=== PATIENT | female | born 1970 | race Caucasian/White ===

== ENCOUNTER 2017-08-23 13:45 | Emergency (ER) | payer BC, SELFPAY ==
[2017-08-23 13:46] VITALS: BP 125/79; PULSE 68; RESP 18; TEMP 36.4; O2SAT 97; BMI 29.7
--- NOTE | 2017-08-23 14:01 | RAD_ITS ---
STUDY: X-RAY CHEST REASON FOR EXAM: Female, 47 years old. Chest pain. TECHNIQUE: Single AP portable view of the chest. COMPARISON: None. FINDINGS: The lungs are clear and expanded. There is no demonstrated pleural abnormality. Normal size heart. There are calcified mediastinal lymph nodes. Normal visualized pulmonary arteries. Normal visualized aortic arch and descending thoracic aorta. Normal visualized thoracic spine. Normal visualized ribs, clavicles, and shoulders. There is no demonstrated abnormality of the visualized soft tissue structures of the upper abdomen. RAD/Chest 1 View (Portable) IMPRESSION: Degenerative changes, as described above. No demonstrated acute cardiopulmonary process. Electronically Signed: Carlos Fletcher MD at 14:19 EDT , Service support ,
--- NOTE | 2017-08-23 14:01 | CT_ITS ---
STUDY: CT BRAIN WITHOUT CONTRAST REASON FOR EXAM: Female, 47 years old. Weakness. Left arm tingling. RADIATION DOSAGE (If Supplied By Facility): CTDIvol = ( 44.99 ) mGy, DLP = ( 779.24 ) mGycm TECHNIQUE: Transaxial CT imaging of the brain was performed without administration of intravenous contrast material. Individualized dose optimization techniques were used for this CT. COMPARISON: None. FINDINGS: Normal soft tissue structures. Normal calvarium. Normal size ventricles and extra-axial spaces for the patient's age. Normal white matter tracts of the cerebral hemispheres. Normal basal ganglia and thalami. Normal brainstem. Normal cerebellum. There is no intracranial hemorrhage. There are no findings of an acute ischemic infarction. There is mucoperiosteal inflammatory disease of the paranasal sinuses consistent with mild to moderate chronic sinusitis. CT/Brain/Head without Contrast IMPRESSION: Normal unenhanced CT scan of the brain. Sinusitis. Electronically Signed: Carlos Fletcher MD at 15:00 EDT , Service support ,
--- NOTE | 2017-08-23 14:01 | EKG12_ITS ---
Test Reason : GEN ILLNESS Blood Pressure : / mmHG Vent. Rate : 061 BPM Atrial Rate : 061 BPM P-R Int : 166 ms QRS Dur : 082 ms QT Int : 434 ms P-R-T Axes : 037 -07 002 degrees QTc Int : 436 ms Normal sinus rhythm Nonspecific ST and T wave abnormality Confirmed by ALESHIA MICHELE, JCARLOS ([id number]), assistant film editor ALINA FLOREZ ([id number] on 08/27/2017 2:19:25 PM Referred By: CLAYTON Confirmed By:JCARLOS MONK MD
--- NOTE | 2017-08-23 14:02 | ED.VISSUMM ---
- ER Visit Summary Date of Service: 08/23/17 Chief Complaint: [] Left arm tingling, facial numbness History of Present Illness: The patient is a 47 F [] worse last night she had a few beers she woke and had a vomiting episode a few times and she felt better and back to her baseline she was weed whacking with a weed whacking machine and she felt her left hand and left face seemed numb and tingly slightly weak to the left upper extremity she sat down the symptoms persisted and she was brought in for evaluation She is feeling slightly better but still feels as if her left arm is numb her facial numbness symptoms have resolved at no time did she have confusion syncope she has had no trauma she has had no symptoms involving anything other than the left upper extremity and left face, she has no history of stroke seizure AK PE or DVT she has had no chest pain or abdominal pain normal bowel bladder habits no fever no cough Physical Examination: [] Signs are within normal range she is resting cupping the bed her HEENT exam is unremarkable cranial nerves are normal her neck is supple lungs are clear heart tones are normal abdomen soft nontender production was unremarkable she has normal sensation and full range of motion to all 4 extremities her strength all 4 extremities are normal 5 out of 5 there is no weakness to any of the extremities left upper extremity strength intact there is normal sensation pulses intact hand function fully normal, mental status visual brewer are normal Test Results: [] Emergency Department Course and Treatment: [] The labs EKG unremarkable, head CT unremarkable, reevaluation the patient's symptoms are resolved she was accompanied to bed I discussed admission with her given her complaints discussed the concept of stroke occult injury life-threatening complications was in the room with her, she is able to read back to me my concerns but stated she felt fine now she understood the concerns and want to be managed as an outpatient and agree to return for symptoms change or intensified and will follow up with neurology by calling for an appointment as soon as possible for further she will take aspirin until she seen by neurology, based on all the above she was discharged home follow-up reEvaluation the patient's NIH is still 0 her physical exam neurologic exam are completely unremarkable back to her baseline Treatment Plan: [] Disposition: [] Home stable patient declined admission Impression: [] Transient numbness and weakness the left arm etiology unclear This note was generated with [employer] software. It may contain incorrect words, spelling, and punctuation that were not noted in review of the chart prior to signing ED Disposition - Plan for ED Patient: Chief Complaint: General Illness Referrals: Xavi Beal MD [Primary Care Provider] -
[2017-08-23] MEDS: 0.9% Normal Saline 1,000 ML 1000 ML IV (14:18)
[2017-08-23 14:22] VITALS: PULSE 61; RESP 14; O2SAT 98
[2017-08-23 14:29] LABS: Absolute Lymphocyte Count 0.76 X10^3/ul (0.83-4.51); Absolute Neutrophil Count 3.1 X10^3/uL (2.0-7.7); Basophil# 0.01 X10^3/uL; Basophil% 0.2 % (0-1); Eosinophil# 0.06 X10^3/uL; Eosinophils% 1.4 % (0-5); Hematocrit 39.9 % (37-47); Hemoglobin 13.2 g/dl (12.0-15.0); Lymphocyte # 0.76 X10^3/ul (4.0); Lymphocyte % 17.9 % (19-41); Mean Corp Hgb Conc 33.1 g/gl (32-36); Mean Corpuscular Hgb 29.1 pg (27.0-32.0); Mean Corpuscular Volume 87.9 fL (81-99); Mean Platelet Vol. 10.2 fl (6.2-12.0); Monocyte# 0.29 X10^3/uL; Monocyte% 6.8 % (0-10); Neutrophil # 3.12 X10^3/uL (2.7-7.7); Neutrophil % 73.5 % (47-70); POSITIVE COUNT NO; POSITIVE DIFFERENTIAL NO; POSITIVE MORPHOLOGY NO; Platelet Count 263 K/mm3 (150-450); RBC Distribution Width CV 13.5 % (11.6-14.6); RBC Distribution Width SD 43.3 fl (35.1-43.9); Red Blood Count 4.54 M/mm3 (4.2-5.4); White Blood Count 4.3 K/mm3 (4.4-11.0)
[2017-08-23 14:45] LABS: AST(SGOT) 20 U/L (15-37); Alanine Aminotransfer ALT/SGPT 20 U/L (13-56); Albumin, Serum 3.5 g/dL (3.2-5.0); Alkaline Phosphatase 47 U/L (45-117); Anion Gap 7 (5-15); BUN 10 mg/dL (7-18); Bilirubin, Direct 0.16 mg/dL (0.00-0.30); Calcium,Total 8.4 mg/dL (8.5-10.1); Chloride 111 mmol/L (98-107); Creatinine, Serum 0.77 mg/dL (0.55-1.02); EST Glomerular Filtration Rate 86 mL/min (>60); Est Glom Filt Rate - Afr Amer 104 mL/min (>60); Estimated Creatinine Clearance 95.41 ml/min; Globulin 3.5 g/dL (2.2-4.2); Glucose 89 mg/dL (74-106); Lipase 96 U/L (73-393); Potassium 3.6 mmol/L (3.5-5.1); Sodium Level 141 mmol/L (136-145)
[2017-08-23 15:01] LABS: BNP,B-Type NATRIURETIC PEPTIDE 58.2 pg/mL (0-100)
--- NOTE | 2017-08-23 15:29 | ED.DEP ---
ED Disposition - Plan for ED Patient: Chief Complaint: General Illness Instructions: ED Transient Ischemic Attack Referrals: Xavi Beal MD [Primary Care Provider] - Stew Rhoades MD [STAFF PHYSICIAN] -
[2017-08-23 15:40] VITALS: BP 118/85; PULSE 59; RESP 13; O2SAT 100
[2017-08-23] MEDS: Aspirin 325 MG Tablet PO (15:40)
--- NOTE | 2017-08-23 15:44 | ED.RN ---
REVIEWED D/C INSTRUCTIONS, FOLLOW UP CARE, AND S/S THAT WOULD WARRANT A RETURN TO THE ED WITH PT. PT VERBALIZED AN UNDERSTANDING AND DENIES FURTHER QUESTIONS FOR THIS RN. PT SKIN P/W/D, RESP EVEN AND UNLABORED, PT A&O X 3, NO DISTRESS NOTED. PT AMBULATED OUT OF ED, GAIT STEADY.
== END 2017-08-23 15:46 | disposition home or self-care (01) ==
PROVIDERS: Emergency Provider Emergency Medicine; Family Provider Family Medicine; PCP Family Medicine
DX: R20.0 Anesthesia of skin (principal); M62.81 Muscle weakness (generalized)
CPT/HCPCS: 70450; 71045; 80048; 80076; 83690; 83880; 84484; 85025; 93005; 96360; 99285; J7030; A4216

== ENCOUNTER → 2018-01-23 07:17 | Outpatient (CLI) | payer BC, SELFPAY ==
[2018-01-23 10:34] LABS: Absolute Lymphocyte Count 1.07 X10^3/ul (0.83-4.51); Absolute Neutrophil Count 1.6 X10^3/uL (2.0-7.7); Basophil# 0.02 X10^3/uL; Basophil% 0.6 % (0-1); Eosinophil# 0.46 X10^3/uL; Eosinophils% 13.2 % (0-5); Hematocrit 37.5 % (37-47); Hemoglobin 12.2 g/dl (12.0-15.0); Lymphocyte # 1.07 X10^3/ul (4.0); Lymphocyte % 30.7 % (19-41); Mean Corp Hgb Conc 32.5 g/gl (32-36); Mean Corpuscular Hgb 29.3 pg (27.0-32.0); Mean Corpuscular Volume 89.9 fL (81-99); Mean Platelet Vol. 11.4 fl (6.2-12.0); Monocyte# 0.32 X10^3/uL; Monocyte% 9.2 % (0-10); Neutrophil # 1.61 X10^3/uL (2.7-7.7); Neutrophil % 46.3 % (47-70); Platelet Count 238 K/mm3 (150-450); RBC Distribution Width CV 12.6 % (11.6-14.6); RBC Distribution Width SD 40.7 fl (35.1-43.9); Red Blood Count 4.17 M/mm3 (4.2-5.4); White Blood Count 3.5 K/mm3 (4.4-11.0)
[2018-01-23 10:36] LABS: POSITIVE COUNT NO; POSITIVE DIFFERENTIAL NO; POSITIVE MORPHOLOGY NO
[2018-01-23 10:52] LABS: AST(SGOT) 17 U/L (15-37); Alanine Aminotransfer ALT/SGPT 23 U/L (13-56); Albumin, Serum 3.4 g/dL (3.2-5.0); Alkaline Phosphatase 49 U/L (45-117); Anion Gap 6 (5-15); BUN 15 mg/dL (7-18); BUN/Creat Ratio 17.4 RATIO (10-20); Calcium,Total 8.4 mg/dL (8.5-10.1); Chloride 109 mmol/L (98-107); Cholesterol 190 mg/dL (200); Creatinine, Serum 0.86 mg/dL (0.55-1.02); EST Glomerular Filtration Rate 75 mL/min (>60); Est Glom Filt Rate - Afr Amer 91 mL/min (>60); Globulin 3.5 g/dL (2.2-4.2); Glucose 83 mg/dL (74-106); High Density Lipoprotein 79 mg/dL; Potassium 3.8 mmol/L (3.5-5.1); Protein, Total 6.9 g/dL (6.4-8.2); Sodium Level 142 mmol/L (136-145); Thyroid Stim Hormone (TSH) 0.19 uIU/mL (0.358-3.74); Triglycerides 36 mg/dL; Very Low Density Lipoprotein 7 mg/dL (5-40)
== END ==
PROVIDERS: Family Provider Family Medicine; PCP Family Medicine; Referring Provider Family Medicine; Visit Provider Family Medicine
DX: Z00.00 Encounter for general adult medical examination without abnormal findings (principal); E03.9 Hypothyroidism, unspecified
CPT/HCPCS: 36415; 80053; 80061; 84443; 85025

== ENCOUNTER → 2018-02-27 08:34 | Outpatient (CLI) | payer BC, SELFPAY ==
--- NOTE | 2018-02-27 08:36 | BI_ITS ---
MAMMOGRAPHY - BILATERAL SCREENING REASON FOR EXAM: Female, 47 years old. Routine annual screening examination. PERTINENT HISTORY: Non-contributory. TECHNIQUE: Digital bilateral breast kamille (3D mammographic acquisition) in the CC and MLO projections. 2-D mediolateral oblique (MLO) and craniocaudad (CC) views of both breasts were obtained. CAD: Full Field Digital Mammography with Computer Added Detection was performed. COMPARISON: None. Baseline examination. FINDINGS: Breast Composition: The breasts are heterogeneously dense, which may obscure small masses. There are no dominant masses or suspicious calcifications. No other significant abnormalities are identified. BI/SCREENING MAMM (CAD), BILAT IMPRESSION: Negative screening mammogram. Yearly followup mammogram recommended. (A) ASSESSMENT CATEGORY: BIRADS Category 1: Negative. A letter regarding these results will be sent to the patient by the facility within 30 days. Approximately 10% of breast cancers are not detected by mammography. A normal mammogram should not delay biopsy of a clinically suspicious abnormality. [id number] Electronically Signed: Tacho Loja MD at 10:05 EST Tel [phone], Service support ,
--- OUTSIDE RECORDS SUMMARY | 2018-04-24 03:19 | XMS RPT_ITS ---
:1970 Author Organization OHIP Care Team Providers Name Role Phone Xavi Beal Attending Unavailable Xavi Beal Referring Unavailable Xavi Beal Primary Care Unavailable Xavi Beal Attending Unavailable Xavi Beal Referring Unavailable Xavi Beal Primary Care Unavailable Xavi Beal Primary Care Unavailable Lauri Head Attending Unavailable Xavi Beal Attending Unavailable PROBLEMS PROBLEMS DATE TYPE CONDITION / CODE ATTENDING STATUS SOURCE 01/23/2018 Unknown Z00.00 - Xavi Beal Encounter for [facility] medical Repository examination without abnormal findings / Z00.00(ICD-10) 01/23/2018 Unknown E03.9 - Xavi Beal Active [place] Hypothyroidism, Community unspecified / Hospital E03.9(ICD-10) Repository 06/20/2017 Admitting Unknown / Xavi Beal [facility] Medical diagnosis UNK(Unknown) G [facility] Repository PROCEDURES PROCEDURES No Procedure Records FoundRESULTS RESULTS SCREENING MAMM (CAD), Observed: 02/27/2018 Status: F Source: [place] 8:36 AM [facility] REPOSITORY [facility] Imaging Services [address] [place] [address] SCREENING MAMM (CAD), BILAT MR#: [id number] Acct: [id number] Name: MICK CUEVAS Rep #: [id number] : 1970 F 47 From: Tacho Loja MD PCP: Xavi Beal MD Status: REG CLI Study: SCREENING MAMM (CAD), BILAT Date of Exam: 02/27/18 Exam# [id number] Ordering Dr: Xavi Beal MD MAMMOGRAPHY - BILATERAL SCREENING REASON FOR EXAM: Female, 47 years old. Routine annual screening examination. PERTINENT HISTORY: Non-contributory. TECHNIQUE: Digital bilateral breast kamille (3D mammographic acquisition) in the CC and MLO projections. 2-D mediolateral oblique (MLO) and craniocaudad (CC) views of both breasts were obtained. CAD: Full Field Digital Mammography with Computer Added Detection was performed. COMPARISON: None. Baseline examination. FINDINGS: Breast Composition: The breasts are heterogeneously dense, which may obscure small masses. There are no dominant masses or suspicious calcifications. No other significant abnormalities are identified. BI/SCREENING MAMM (CAD), BILAT IMPRESSION: Negative screening mammogram. Yearly followup mammogram recommended. (A) ASSESSMENT CATEGORY: BIRADS Category 1: Negative. A letter regarding these results will be sent to the patient by the facility within 30 days. Approximately 10% of breast cancers are not detected by mammography. A normal mammogram should not delay biopsy of a clinically suspicious abnormality. [id number] Electronically Signed: Tacho Loja MD at 10:05 EST Tel [phone], Service support , CC: Xavi Beal MD Marketing Traffic Coordinator: Signed CBC W/DIFF, AUTOMATED Collected: 01/23/2018 Status: F Source: [place] 7:23 AM [facility] REPOSITORY TYPE CODE TESTS RESULT OUT OF RANGE REFERENCE UNITS LAB L100.1000 4.4-11.0 K/mm3 Low WBC 3.5 LAB L100.1200 4.2-5.4 M/mm3 Low RBC 4.17 LAB L100.1300 12.0-15.0 g/dl Normal HGB 12.2 LAB L100.1400 37-47 % Normal HCT 37.5 LAB L100.1500 81-99 fL Normal MCV 89.9 LAB L100.1600 27.0-32.0 pg Normal MCH 29.3 LAB L100.1700 32-36 g/gl Normal MCHC 32.5 LAB L100.1810 11.6-14.6 % Normal RDW CV 12.6 LAB L100.1820 35.1-43.9 fl Normal RDW SD 40.7 LAB L100.1900 150-450 K/mm3 Normal PLT 238 LAB L100.2000 6.2-12.0 fl Normal MPV 11.4 LAB L100.2100 47-70 % Low NEUT% 46.3 LAB L100.2200 19-41 % Normal LY% 30.7 LAB L100.2300 0-10 % Normal MONO% 9.2 LAB L100.2400 0-5 % High EO% 13.2 LAB L100.2500 0-1 % Normal BASO% 0.6 LAB L100.2550 0.0-0.9 % Normal IM GRAN % 0.000 Result Comment: IG% - Immature Granulocytes (promyelocytes, myelocytes and metamyelocytes) > 1% indicates that a LEFT SHIFT is Present. LAB L100.2620 2.0-7.7 X10 3/uL Low Absolute Neut 1.6 LAB L100.2720 0.83-4.51 X10 3/ul Normal Absolute Lymph 1.07 Performed By: #### L100.0100 #### [facility] [address] [place], [address] COMPREHENSIVE METABOLIC Collected: 01/23/2018 Status: F Source: [place] [facility] 7:23 AM [facility] REPOSITORY TYPE CODE TESTS RESULT OUT OF RANGE REFERENCE UNITS LAB L501.0100 74-106 mg/dL Normal GLU 83 Result Comment: Please note revised GLUCOSE reference range effective 2017. LAB L501.1000 7-18 mg/dL Normal BUN 15 LAB L501.1100 0.55-1.02 mg/dL Normal CREAT,SERUM 0.86 Result Comment: The validity of the calculated GFR AND GFRAA in patients over 70 years has not been determined. Clinical correlation is essential. LAB L501.1110 >60 mL/min Normal EST GFR 75 Result Comment: Non- GFR Calc LAB L501.1115 >60 mL/min Normal EST GFR - AA 91 Result Comment: GFR Calc LAB L501.1300 10-20 RATIO Normal BUN/CRE 17.4 LAB L501.1500 6.4-8.2 g/dL T Normal PROT 6.9 LAB L501.1800 3.2-5.0 g/dL Normal ALB 3.4 LAB L501.1950 2.2-4.2 g/dL Normal GLOB 3.5 LAB L501.2000 0.9-2.4 RATIO Normal A/G 1.0 LAB L501.2200 8.5-10.1 mg/dL Low CA 8.4 LAB L501.4100 15-37 U/L Normal AST 17 LAB L501.4305 45-117 U/L Normal ALK P 49 LAB L501.4405 13-56 U/L Normal ALT 23 LAB L501.4600 0.20-1.00 mg/dL T Normal BILI 0.60 LAB L501.5300 136-145 mmol/L NA Normal 142 LAB L501.5600 3.5-5.1 mmol/L K Normal 3.8 LAB L501.5900 98-107 mmol/L High CL 109 LAB L501.6100 21.0-32.0 mmol/L Normal CO2 27.0 LAB L501.6200 5-15 Normal GAP 6 Performed By: #### L500.4050, L500.4100, L501.9520 #### [facility] [address] [place], [place], [address] LIPID PROFILE Collected: 01/23/2018 Status: F Source: [place] 7:23 AM [facility] REPOSITORY TYPE CODE TESTS RESULT OUT OF RANGE REFERENCE UNITS LAB L501.4900 200 mg/dL Normal CHOL 190 Result Comment: <200 mg/dL Desirable 200-240 mg/dL Borderline >240 mg/dL High Risk LAB L501.5000 mg/dL Normal TRIG 36 Result Comment: The drugs N-Acetylcysteine and Metamizole may falsely depress this assay. Serum Triglycerides Reference Interval Normal <150 mg/dL Borderline high 150 - 199 mg/dL High 200 - 499 mg/dL Very High > or = 500 mg/dL LAB L501.6400 mg/dL Normal HDL 79 Result Comment: The drugs N-Acetylcysteine and Metamizole may falsely depress this assay. Reference Range HDL <40 mg/dL Low HDL Cholesterol HDL >or= 60 mg/dL High HDL Cholesterol LAB L501.6500 0-130 mg/dL Normal LDL 104 LAB L501.6600 5-40 mg/dL Normal VLDL 7 Performed By: #### L500.4050, L500.4100, L501.9520 #### [facility] [address] [place], [address] THYROID STIM HORMONE Collected: 01/23/2018 Status: F Source: [place] ([facility]) 7:23 AM [facility] REPOSITORY TYPE CODE TESTS RESULT OUT OF RANGE REFERENCE UNITS LAB L501.9520 0.358-3.74 uIU/mL Low TSH 0.19 Performed By: #### L500.4050, L500.4100, L501.9520 #### [facility] [address] [place], [address] 12 LEAD ELECTROCARDIOGRAM Observed: 08/27/2017 Status: F Source: [place] 2:19 PM [facility] REPOSITORY [facility] Cardiovascular Services [address] [place] [address] 12 Lead EKG 08/23/17 1420 MR#: [id number] Acct: [id number] Name: MICK CUEVAS Rep #: [id number] : 1970 47 From: Juan Monk MD Attending Dr: Status: DEP Ordering Dr: Lauri Head MD Date: 08/23/17 Location: ED Sex: F C Admitted: Test Reason : GEN ILLNESS Blood Pressure : / mmHG Vent. Rate : 061 BPM Atrial Rate : 061 BPM P-R Int : 166 ms QRS Dur : 082 ms QT Int : 434 ms P-R-T Axes : 037 -07 002 degrees QTc Int : 436 ms Normal sinus rhythm Nonspecific ST and T wave abnormality Confirmed by JUAN MONK MD ([id number]), assistant film editor ALINA FLOREZ ([id number]) on 08/27/2017 2:19:25 PM Referred By: CLAYTON Confirmed By:JUAN MONK MD 08/27/17 1419 Date Juan Monk MD CC: MD Josette Head; Xavi Beal MD Signed EMERGENCY DEPARTMENT Observed: 08/23/2017 Status: F Source: [place] SUMMARY 4:06 PM [facility] REPOSITORY [facility] Medical Records Department [address] [place] [address] Emergency Department Summary 08/23/17 1402 MR#: [id number] Acct: [id number] Name: MICK CUEVAS Rep #: [id number] : 1970 47 From: Lauri Head MD PCP: Xavi Beal MD Status: DEP ER - ER Visit Summary Date of Service: 08/23/17 Chief Complaint: [] Left arm tingling, facial numbness History of Present Illness: The patient is a 47 F [] worse last night she had a few beers she woke and had a vomiting episode a few times and she felt better and back to her baseline she was weed whacking with a weed whacking machine and she felt her left hand and left face seemed numb and tingly slightly weak to the left upper extremity she sat down the symptoms persisted and she was brought in for evaluation She is feeling slightly better but still feels as if her left arm is numb her facial numbness symptoms have resolved at no time did she have confusion syncope she has had no trauma she has had no symptoms involving anything other than the left upper extremity and left face, she has no history of stroke seizure MN PE or DVT she has had no chest pain or abdominal pain normal bowel bladder habits no fever no cough Physical Examination: [] Signs are within normal range she is resting cupping the bed her HEENT exam is unremarkable cranial nerves are normal her neck is supple lungs are clear heart tones are normal abdomen soft nontender production was unremarkable she has normal sensation and full range of motion to all 4 extremities her strength all 4 extremities are normal 5 out of 5 there is no weakness to any of the extremities left upper extremity strength intact there is normal sensation pulses intact hand function fully normal, mental status visual brewer are normal Test Results: [] Emergency Department Course and Treatment: [] The labs EKG unremarkable, head CT unremarkable, reevaluation the patient's symptoms are resolved she was accompanied to bed I discussed admission with her given her complaints discussed the concept of stroke occult injury life-threatening complications was in the room with her, she is able to read back to me my concerns but stated she felt fine now she understood the concerns and want to be managed as an outpatient and agree to return for symptoms change or intensified and will follow up with neurology by calling for an appointment as soon as possible for further she will take aspirin until she seen by neurology, based on all the above she was discharged home follow-up reEvaluation the patient's NIH is still 0 her physical exam neurologic exam are completely unremarkable back to her baseline Treatment Plan: [] Disposition: [] Home stable patient declined admission Impression: [] Transient numbness and weakness the left arm etiology unclear This note was generated with Gogobot dictation software. It may contain incorrect words, spelling, and punctuation that were not noted in review of the chart prior to signing ED Disposition - Plan for ED Patient: Chief Complaint: General Illness Referrals: Xavi Beal MD [Primary Care Provider] - What to do if you have Problems For any increased pain, shortness of breath, bleeding, nausea or vomiting, chest pain, or any unexpected problems, contact your Primary Care Provider. Call [facility] ([phone]) or report to the closest Emergency Room. Call 911 if necessary. 08/23/17 3277 <Electronically signed by Lauri Head MD> Date Lauri Head MD Cosigner Signature (If Indicated): Date CC: Xavi Beal MD DISCHARGE INSTRUCTION Observed: 08/23/2017 Status: F Source: [place] 3:30 PM [facility] REPOSITORY [facility] Medical Records Department [address] [place] [address] Discharge Instruction 08/23/17 1529 MR#: [id number] Acct: [id number] Name: MICK CUEVAS Rep #: [id number] : 1970 47 From: Lauri Head MD PCP: Xavi Beal MD Status: REG ER ED Disposition - Plan for ED Patient: Chief Complaint: General Illness Instructions: ED Transient Ischemic Attack Referrals: Xavi Beal MD [Primary Care Provider] - Stew Rhoades MD [STAFF PHYSICIAN] - What to do if you have Problems For any increased pain, shortness of breath, bleeding, nausea or vomiting, chest pain, or any unexpected problems, contact your Primary Care Provider. Call [facility] ([phone]) or report to the closest Emergency Room. Call 911 if necessary. 08/23/17 1530 <Electronically signed by Lauri Head MD> Date Lauri Head MD Cosigner Signature (If Indicated): Date CC: Xavi Beal MD CBC W/DIFF, AUTOMATED Collected: 08/23/2017 Status: F Source: [place] 2:15 PM [facility] REPOSITORY TYPE CODE TESTS RESULT OUT OF RANGE REFERENCE UNITS LAB L100.1000 4.4-11.0 K/mm3 Low WBC 4.3 LAB L100.1200 4.2-5.4 M/mm3 Normal RBC 4.54 LAB L100.1300 12.0-15.0 g/dl Normal HGB 13.2 LAB L100.1400 37-47 % Normal HCT 39.9 LAB L100.1500 81-99 fL Normal MCV 87.9 LAB L100.1600 27.0-32.0 pg Normal MCH 29.1 LAB L100.1700 32-36 g/gl Normal MCHC 33.1 LAB L100.1810 11.6-14.6 % Normal RDW CV 13.5 LAB L100.1820 35.1-43.9 fl Normal RDW SD 43.3 LAB L100.1900 150-450 K/mm3 Normal PLT 263 LAB L100.2000 6.2-12.0 fl Normal MPV 10.2 LAB L100.2100 47-70 % High NEUT% 73.5 LAB L100.2200 19-41 % Low LY% 17.9 LAB L100.2300 0-10 % Normal MONO% 6.8 LAB L100.2400 0-5 % Normal EO% 1.4 LAB L100.2500 0-1 % Normal BASO% 0.2 LAB L100.2550 0.0-0.9 % Normal IM GRAN % 0.200 Result Comment: IG% - Immature Granulocytes (promyelocytes, myelocytes and metamyelocytes) > 1% indicates that a LEFT SHIFT is Present. LAB L100.2620 2.0-7.7 X10 3/uL Normal Absolute Neut 3.1 LAB L100.2720 0.83-4.51 X10 3/ul Low Absolute Lymph 0.76 Performed By: #### L100.0100 #### [facility] [address] [place], [address] BASIC METABOLIC Collected: 08/23/2017 Status: F Source: [place] PROFILE ([facility]) 2:15 PM [facility] REPOSITORY TYPE CODE TESTS RESULT OUT OF RANGE REFERENCE UNITS LAB L501.0100 74-106 mg/dL Normal GLU 89 Result Comment: Please note revised GLUCOSE reference range effective 2017. LAB L501.1000 7-18 mg/dL Normal BUN 10 LAB L501.1100 0.55-1.02 mg/dL Normal CREAT,SERUM 0.77 Result Comment: The validity of the calculated GFR AND GFRAA in patients over 70 years has not been determined. Clinical correlation is essential. LAB L501.1110 >60 mL/min Normal EST GFR 86 Result Comment: Non- GFR Calc LAB L501.1115 >60 mL/min Normal EST GFR - AA 104 Result Comment: GFR Calc LAB L501.1255 ml/min Normal Estimated CRCL 95.41 LAB L501.1300 10-20 RATIO Normal BUN/CRE 13.0 LAB L501.2200 8.5-10 mg/dL Low .1 CA 8.4 LAB L501.5300 136-14 mmol/L Normal 5 NA 141 LAB L501.5600 3.5-5. mmol/L Normal 1 K 3.6 LAB L501.5900 98-107 mmol/L High CL 111 LAB L501.6100 21.0-3 mmol/L Normal 2.0 CO2 23.0 LAB L501.6200 5-15 Normal GAP 7 Performed By: #### L500.2500, L500.3400, L501.2450, L501.4010 #### [facility] [address] [place], [place], [id number] LIVER PROFILE Collected: 08/23/2017 Status: F Source: [place] 2:15 PM [facility] REPOSITORY TYPE CODE TESTS RESULT OUT OF RANGE REFERENCE UNITS LAB L501.1500 6.4-8.2 g/dL Normal T PROT 7.0 LAB L501.1800 3.2-5.0 g/dL Normal ALB 3.5 LAB L501.1950 2.2-4.2 g/dL Normal GLOB 3.5 LAB L501.4100 15-37 U/L Normal AST 20 LAB L501.4305 45-117 U/L Normal ALK P 47 LAB L501.4405 13-56 U/L Normal ALT 20 LAB L501.4600 0.20-1.00 mg/dL Normal T BILI 0.70 LAB L501.4700 0.00-0.30 mg/dL Normal D BILI 0.16 Performed By: #### L500.2500, L500.3400, L501.2450, L501.4010 #### [facility] [address] [facility] [place], [address] LIPASE Collected: 08/23/2017 Status: F Source: [place] 2:15 PM [facility] REPOSITORY TYPE CODE TESTS RESULT OUT OF RANGE REFERENCE UNITS LAB L501.2450 73-393 U/L Normal LIPASE 96 Performed By: #### L500.2500, L500.3400, L501.2450, L501.4010 #### [facility] [address] [place], [address] TROPONIN-I Collected: 08/23/2017 Status: F Source: [place] 2:15 PM [facility] REPOSITORY TYPE CODE TESTS RESULT OUT OF RANGE REFERENCE UNITS LAB L501.4010 <0.045 ng/mL Normal < 0.015 TROPONIN-I Result Comment: TROPONIN-I EXPECTED VALUES <0.045 Negative 0.045 - 0.590 Consistent with Cardiac Damage > OR = 0.600 Critical Value Not every elevated troponin is indicative of MN. These values should be used with clinical judgement in examining the patient's clinical picture for diagnosis. To establish a diagnosis of MN versus myocardial injury, there must be a demonstrated rise and/or fall in the troponin values, in addition to ischemic symptoms, EKG changes, new regional wall motion abnormality, and/or angiographical evidence. PLEASE NOTE: REFERENCE RANGES EDITED 17 Performed By: #### L500.2500, L500.3400, L501.2450, L501.4010 #### [facility] [address] [facility] [place], [address] BNP,B-TYPE NATRIURETIC Collected: 08/23/2017 Status: F Source: [place]PT[place] 2:15 PM [facility] REPOSITORY TYPE CODE TESTS RESULT OUT OF RANGE REFERENCE UNITS LAB L503.6620 0-100 pg/mL Normal B-TYPE 58.2 OBDULIA PEP Performed By: #### L503.6620 #### [facility] [address] [facility] [address] [place], [place], [address] CHEST 1 VIEW Observed: 08/23/2017 Status: F Source: [place] (PORTABLE) 2:03 PM [facility] REPOSITORY [facility] Imaging Services [address] [place] [address] Chest 1 View (Portable) MR#: [id number] Acct: [id number] Name: MICK CUEVAS Rep #: [id number] : 1970 F 47 From: Carlos Fletcher MD PCP: Xavi Beal MD Status: PRE ER Study: Chest 1 View (Portable) Date of Exam: 08/23/17 Exam# [id number] Ordering Dr: Lauri Head MD STUDY: X-RAY CHEST REASON FOR EXAM: Female, 47 years old. Chest pain. TECHNIQUE: Single AP portable view of the chest. COMPARISON: None. FINDINGS: The lungs are clear and expanded. There is no demonstrated pleural abnormality. Normal size heart. There are calcified mediastinal lymph nodes. Normal visualized pulmonary arteries. Normal visualized aortic arch and descending thoracic aorta. Normal visualized thoracic spine. Normal visualized ribs, clavicles, and shoulders. There is no demonstrated abnormality of the visualized soft tissue structures of the upper abdomen. RAD/Chest 1 View (Portable) IMPRESSION: Degenerative changes, as described above. No demonstrated acute cardiopulmonary process. Electronically Signed: Carlos Fletcher MD at 14:19 EDT , Service support , CC: MD Josette Head; Xavi Beal MD Marketing Traffic Coordinator: Signed BRAIN/HEAD WITHOUT Observed: 08/23/2017 Status: F Source: [place] CONTRAST 2:03 PM [facility] REPOSITORY [facility] Imaging Services [address] [place] [address] Brain/Head without Contrast MR#: [id number] Acct: [id number] Name: MICK CUEVAS Rep #: [id number] : 1970 F 47 From: Carlos Fletcher MD PCP: Xavi Beal MD Status: REG ER Study: Brain/Head without Contrast Date of Exam: 08/23/17 Exam# [id number] Ordering Dr: Lauri Head MD STUDY: CT BRAIN WITHOUT CONTRAST REASON FOR EXAM: Female, 47 years old. Weakness. Left arm tingling. RADIATION DOSAGE (If Supplied By Facility): CTDIvol = ( 44.99 ) mGy, DLP = ( 779.24 ) mGycm TECHNIQUE: Transaxial CT imaging of the brain was performed without administration of intravenous contrast material. Individualized dose optimization techniques were used for this CT. COMPARISON: None. FINDINGS: Normal soft tissue structures. Normal calvarium. Normal size ventricles and extra-axial spaces for the patient's age. Normal white matter tracts of the cerebral hemispheres. Normal basal ganglia and thalami. Normal brainstem. Normal cerebellum. There is no intracranial hemorrhage. There are no findings of an acute ischemic infarction. There is mucoperiosteal inflammatory disease of the paranasal sinuses consistent with mild to moderate chronic sinusitis. CT/Brain/Head without Contrast IMPRESSION: Normal unenhanced CT scan of the brain. Sinusitis. Electronically Signed: Carlos Fletcher MD at 15:00 EDT , Service support , CC: MD Josette Head; Xavi Beal MD Marketing Traffic Coordinator: Signed TSH Collected: 06/20/2017 Status: F Source: [facility] 10:48 AM [facility] REPOSITORY TYPE CODE TESTS RESULT OUT OF RANGE REFERENCE UNITS LAB L500.92148 0.358-3.740 UIU/ML Normal TSH 1.300 Result Comment: 3rd generation ultra sensitive TSH Performed By: #### L500.62681 #### [facility] [address] [place], [place] [address]# [phone] ALLERGIES ALLERGIES DATE TYPE / CODE NAME / CODE REACTION SEVERITY SOURCE 08/23/2017 Drug No Known Unknown [facility] Allergy/4160 Allergies/F00 Hospital 93591(SNOMED 8351692(RXNOR Repository CT) M) ENCOUNTERS ENCOUNTERS ADMIT/DISCHARGE ACCOUNT ADMITTING ENCOUNTER LOCATION SOURCE NUMBER CLASS 02/27/2018 [id number] [place] [facility] ing:OPBI Repository 01/23/2018 [id number] Ambulatory [place] [facility] ing:MTLAB Repository 08/23/2017/ [id number] Emergency [place] 8 1 [facility] ing:ED Repository 06/20/[id number] [facility] Medical 8 [facility] [place] g:NASREEN Repository PAYERS PAYERS ENCOUNTER GUARANTOR PAYER SUBSCRIBER SOURCE 02/27/2018 MICK L Primary MICK L [place] [id number] Insurance:ANTHEMPoli MINEWEASERDOB: [facility] cy Number: [id number] [id number] Repository [address]Nud: 330) e Date:[id number] [phone] () [address] [place] [address]WZ: 02/27/2018 Secondary NOT GIVENUNK [place] Insurance:SELF PAY [facility] Number: Effective Repository Date:2018-01-16 01/23/2018 MICK L Primary MICK L [place] [id number] Insurance:ANTHEMPoli MINEWEASERDOB: [facility] cy Number: [id number] Area [id number] Repository [address]Doz: 330 e Date:[id number] [phone] () [address], [place] [address]RP: 01/23/2018 Secondary NOT GIVENUNK [place] Insurance:SELF PAY [facility] Number: Effective Repository Date:2018-01-23 08/23/2017 MICK L Primary MICK L [place] [id number] Insurance:ANTHEMPoli MINEWEASERDOB: [facility] cy Number: [id number] [id number] Repository [address]Jfr: 330 e Date:[id number] [phone] () [address], [place] [address]LH: 08/23/2017 Secondary NOT GIVENUNK [place] Insurance:SELF PAY [facility] Number: Effective Repository Date:2017-08-23 06/20/2017 MICK Yao [facility] MICK Yao [id number] Insurance:[facility] OTHERPolicy Number: Repository [place], [place] [id number] [address]Xlt: [address] e Date: [phone] () [address], [place] [address]LO:
== END ==
PROVIDERS: Family Provider Family Medicine; PCP Family Medicine; Referring Provider Family Medicine; Visit Provider Family Medicine
DX: Z12.31 Encounter for screening mammogram for malignant neoplasm of breast (principal)
CPT/HCPCS: 77063; 77067

== ENCOUNTER → 2018-06-26 10:23 | Outpatient (CLI) | payer BC, SELFPAY ==
[2018-06-26 13:18] LABS: Thyroid Stim Hormone (TSH) 0.76 uIU/mL (0.358-3.74)
== END ==
PROVIDERS: Family Provider Family Medicine; PCP Family Medicine; Referring Provider Family Medicine; Visit Provider Family Medicine
DX: E03.9 Hypothyroidism, unspecified (principal)
CPT/HCPCS: 36415; 84443

== ENCOUNTER → 2019-04-02 07:57 | Outpatient (CLI) | payer BC, SELFPAY ==
[2019-04-02 10:02] LABS: Absolute Lymphocyte Count 1.19 X10^3/uL (0.83-4.51); Absolute Neutrophil Count 1.9 X10^3/uL (2.0-7.7); Basophil# 0.03 X10^3/uL; Basophil% 0.8 % (0-1); Eosinophil# 0.53 X10^3/uL; Eosinophils% 13.4 % (0-5); Hematocrit 38.6 % (37-47); Hemoglobin 12.7 g/dL (12.0-15.0); Lymphocyte # 1.19 X10^3/ul (4.0); Lymphocyte % 30.1 % (19-41); Mean Corp Hgb Conc 32.9 g/dL (32-36); Mean Corpuscular Hgb 30.3 pg (27.0-32.0); Mean Corpuscular Volume 92.1 fL (81-99); Monocyte# 0.27 X10^3/uL; Monocyte% 6.8 % (0-10); NRBC Flagged by Analyzer 0 % (0-5); Neutrophil # 1.92 X10^3/uL (2.7-7.7); Neutrophil % 48.6 % (47-70); Platelet Count 258 K/mm3 (150-450); RBC Distribution Width CV 12.6 % (11.6-14.6); RBC Distribution Width SD 42.4 fl (35.1-43.9); Red Blood Count 4.19 M/mm3 (4.2-5.4)
[2019-04-02 10:09] LABS: Color, Urine Yellow (Yellow); Glucose, Dipstick NEGATIVE (Normal); Ketone-Dipstick Negative (Negative); Leukocyte Esterase-Dipstick Negative /ul (Negative); Nitrite-Dipstick Negative (Negative); Occult Blood-Urine 50 /ul (Negative); Protein-Dipstick Negative (Negative); Specific Gravity, Urine 1.015 (1.002-1.030); Urine Bilirubin Dipstick Negative (Negative); Urine Clarity Sl Cldy (Clear); Urine Urobilinogen Normal (Normal)
[2019-04-02 10:22] LABS: AST(SGOT) 18 U/L (15-37); Alanine Aminotransfer ALT/SGPT 21 U/L (13-56); Albumin, Serum 3.4 g/dL (3.2-5.0); Alkaline Phosphatase 44 U/L (45-117); Anion Gap 4 (5-15); BUN 21 mg/dL (7-18); BUN/Creat Ratio 23.2 RATIO (10-20); Calcium,Total 8.1 mg/dL (8.5-10.1); Chloride 109 mmol/L (98-107); Cholesterol 226 mg/dL (200); EST Glomerular Filtration Rate 71 mL/min (>60); Est Glom Filt Rate - Afr Amer 86 mL/min (>60); Globulin 3.4 g/dL (2.2-4.2); Glucose 86 mg/dL (74-106); High Density Lipoprotein 65 mg/dL; Potassium 3.9 mmol/L (3.5-5.1); Protein, Total 6.8 g/dL (6.4-8.2); Sodium Level 139 mmol/L (136-145); Thyroid Stim Hormone (TSH) 2.54 uIU/mL (0.358-3.74); Triglycerides 48 mg/dL; Very Low Density Lipoprotein 10 mg/dL (5-40)
== END ==
PROVIDERS: Family Provider Family Medicine; PCP Family Medicine; Referring Provider Family Medicine; Visit Provider Family Medicine
DX: Z00.00 Encounter for general adult medical examination without abnormal findings (principal); E03.9 Hypothyroidism, unspecified
CPT/HCPCS: 36415; 80053; 80061; 81002; 84443; 85025

== ENCOUNTER → 2020-04-05 15:55 | Outpatient (CLI) | payer OTHER, SELFPAY ==
--- NOTE | 2020-04-05 16:03 | BI_ITS ---
MAMMOGRAPHY - BILATERAL SCREENING REASON FOR EXAM: Female, 49 years old. Routine annual screening examination. PERTINENT HISTORY: Non-contributory. TECHNIQUE: Digital bilateral breast tito (3D mammographic acquisition) in the CC and MLO projections. 2-D mediolateral oblique (MLO) and craniocaudad (CC) views of both breasts were obtained. CAD: Full Field Digital Mammography with Computer Added Detection was performed. COMPARISON: Comparison is made with prior study 03/29/2018. FINDINGS: Breast Composition: The breasts are heterogeneously dense, which may obscure small masses. There are no dominant masses or suspicious calcifications. No other significant abnormalities are identified. There has been no significant change since the prior study. BI/SCREEN MAMM (CAD) W/TITO BILAT IMPRESSION: Stable bilateral screening mammogram. Yearly follow-up mammogram recommended. (A) ASSESSMENT CATEGORY: BIRADS Category 1: Negative. A letter regarding these results will be sent to the patient by the facility within 30 days. Approximately 10% of breast cancers are not detected by mammography. A normal mammogram should not delay biopsy of a clinically suspicious abnormality. [id number] Electronically Signed: Tacho Loja, at 8:19 EST , Service support ,
== END ==
PROVIDERS: PCP Family Medicine; Visit Provider Family Medicine
DX: Z12.31 Encounter for screening mammogram for malignant neoplasm of breast (principal)
CPT/HCPCS: 77063; 77067

== ENCOUNTER → 2021-11-13 | Outpatient (CLI) | payer OTHER, SELFPAY ==
[2021-11-18 15:22] LABS: HPV APTIMA, High Risk Negative (Negative)
== END | disposition home or self-care (01) ==
LOC: LABSPEC 09:26
PROVIDERS: PCP Family Medicine; Visit Provider Obstetrics & Gynecology
DX: Z12.4 Encounter for screening for malignant neoplasm of cervix (principal)
CPT/HCPCS: 87624; 88175; G0145

== ENCOUNTER → 2021-12-18 | Outpatient (CLI) | payer OTHER, SELFPAY ==
--- NOTE | 2021-12-18 16:34 | BI_ITS ---
MAMMOGRAPHY - BILATERAL SCREENING 3-D TOMOSYNTHESIS REASON FOR EXAM: Female, 51 years old. SCREENING PERTINENT HISTORY: No significant family history. TECHNIQUE: 2-D mammograms and 3-D Tomosynthesis of the breast (s) were performed. CAD was performed. COMPARISON: 04/05/2020 FINDINGS: The breast composition is heterogeneously dense that can obscure small breast masses. Scattered benign calcifications are seen. No dense spiculated masses or suspicious microcalcifications are identified. No architectural distortion is identified. There is no skin thickening or retraction. There has been no significant change since the prior study. BI/SCRN MAMM (CAD)W/TITO BILAT IMPRESSION: No mammographic signs of malignancy. Routine yearly mammograms recommended. ASSESSMENT CATEGORY: BIRADS Category 1: Negative. A letter regarding these results will be sent to the patient by the facility within 30 days. FOLLOW UP RECOMMENDATION: Yearly follow up mammogram recommended. (A) Approximately 10% of breast cancers are not detected by mammography. A normal mammogram should not delay biopsy of a clinically suspicious abnormality. Electronically Signed: Kristofer Rey MD at 17:49 EDT ,
== END | disposition home or self-care (01) ==
PROVIDERS: PCP Family Medicine; Visit Provider Obstetrics & Gynecology
DX: Z12.31 Encounter for screening mammogram for malignant neoplasm of breast (principal)
CPT/HCPCS: 77063; 77067

== ENCOUNTER 2022-09-11 09:42 | Inpatient (IN) | payer OTHER, SELFPAY ==
[2022-09-11 09:42] VITALS: BP 131/84; PULSE 88; RESP 18; TEMP 36.7; O2SAT 100; BMI 33.5
--- NOTE | 2022-09-11 09:53 | EDS_ITS ---
HPI History of Present Illness Chief Complaint: Headache Informant: patient Onset/Context/Timing Onset: Yesterday Context: Sudden and Activity (rest) Timing: Continuous Quality -Headache: Positive for Throbbing Location: occipital Current Severity: Severe Maximum Severity: Severe Worsened by: nothing Relieved by: nothing Associated Symptoms/Injury Associated Symptoms: Positive for Nausea and Tingling (feet at times, bilat); Negative for Fever, Vomiting, Sore Throat, Sinus Pressure, Preceding Aura, Visual Changes, Blurred Vision or Photophobia Injury - ALTAMIRANO: Negative for Direct Trauma, Fall or Assault Narrative Narrative: Patient has been having an unusual headache that started suddenly somewhere around 24 hours ago, and did not go away this morning after going to sleep last night. When asked if it started like a thunderclap, she states yes kind of she has had no loss of consciousness or focal neurologic symptoms, but she states that ever since then her neck has been sore/painful and she has also had pain in her low back nonlateralizing that is worse when she is sitting and better when she is standing. She states when she sits the pain goes into her buttocks and thighs but does not go down to her below the knees. No bowel or bladder dysfunction/incontinence/retention. She has had occasional headaches in the past and states they have been occipital when they occur but nothing like this, she does not get headaches often. She felt fine prior to this yesterday morning. No recent illness or travel out of the area. Moving her head hurts more but it is not stiff in her neck. She denies any fevers or chills or confusion. No vision changes. Nausea but no vomiting. No photophobia. [facility] Medical History (Updated 09/11/22 @ 17:[address] Carlos Young MD) Hypothyroid Home Medications levothyroxine 125 mcg tablet 125 mcg PO DAILY THYROID 09/11/22 [History Last Taken 09/11/22] Allergy/AdvReac Type Severity Reaction Status Date / Time No Known Allergies Allergy Verified 08/23/17 13:46 Social History Smoking Status: Never smoker ROS ROS ED Constitutional Constitutional ED: Denies chills or fever(s) Eyes Eyes: Denies change in vision, diplopia or photophobia ENT ENT ED: Denies rhinorrhea or sore throat Cardiovascular Cardiovascular: Denies chest pain or palpitations Respiratory/Chest Respiratory/Chest: Denies cough or dyspnea Gastrointestinal Gastrointestinal: Reports nausea; Denies abdominal pain, diarrhea or vomiting Genitourinary Genitourinary ED: Denies dysuria or hematuria Musculoskeletal Musculoskeletal: Reports back pain and neck pain Integumentary Denies abscess or rash Neurologic Neurologic: Reports headache(s) and paresthesias; Denies weakness Psychiatric Psychiatric: Denies anxiety or suicidal thoughts EXAM Physical Exam Const Vital Signs: 09/11/22 09:42 Temperature 98.1 F Temperature Source Temporal Pulse Rate 88 Respiratory Rate 18 Blood Pressure 131/84 H Blood Pressure Mean 99 Pulse Ox 100 Oxygen Delivery Method Room Air Positive well nourished and well developed Constitutional Narrative: Standing and ambulatory throughout most of exam. Able to sit when asked to. General Appearance ED: well developed and NAD HEENT Reports moist mucous membranes normocephalic and atraumatic; Negative for temporal artery tenderness Face and Sinus: Negative for sinus tenderness Eyes PERRL and EOMs intact bilaterally Neck full ROM, no lymphadenopathy, supple and no meningeal signs Resp normal respiratory effort and clear to auscultation bilaterally Cardio regular rate, regular rhythm and no murmurs GI non-tender and non-distended Auscultation: normoactive bowel sounds Palpation: soft Back/Spine no CVA tenderness Back/Spine Narrative: Mildly tender throughout lumbosacral paraspinal areas no midline bony t enderness. Negative straight leg raises bilaterally with sitting. General Back: other FROM Extremity normal to inspection General Extremety ED: Negative for edema, pulses abnormal or tenderness General Extremity: Negative for edema or pulses abnormal Neuro oriented x3, CN's II-XII intact bilaterally and no sensory deficits noted Neuro Narrative: Normal symmetric both lower extremity reflexes, no clonus. Sensorium / Orientation: awake and alert Motor Exam: strength 5/5 throughout Psych mental status grossly normal Skin no rashes or lesions noted and no wounds MDM MDM MDM Narrative Medical decision making narrative: I discussed with the patient the differential, certainly includes primary headache syndromes, but also given the history I would be concerned about ruling out subarachnoid hemorrhage and ruptured aneurysm, and also in the differential would be early infectious etiologies such as meningitis. She does not have symptoms of encephalitis right now, she does not have a known history of a tick bite nor does she have any rash it looks like Lyme disease here. 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 The CT and CTA are normal. I reviewed the images and report I agree with it. It is noted that on the imaging she has pansinusitis but she has no clinical symptoms or examination findings of that. Patient was given Reglan and morphine, the latter of which was helping her back, and we performed an LP see the procedure note. After Glc and protein resulted, I discussed with infectious disease Dr. Zamudio, he recommends admission with IV acyclovir and infectious disease consultation. Cell count shows 164 total white blood cells, which is relatively low, the majority of them are monocytes at 90% with 10% of them being polynuclear white blood cells; and no RBC. History & Record Review Discussion w/independent historian: Patient Lab Data Attestation: I reviewed the patient's lab results. Labs: Laboratory Results - last 24 hr 09/11/22 09/11/22 09/11/22 10:05 10:05 15:30 WBC 4.6 RBC 4.52 Hgb 13.7 Hct 41.0 MCV 90.7 MCH 30.3 MCHC 33.4 RDW Std Deviation 42.5 RDW Coeff of Cricket 12.8 Plt Count 319 MPV 10.3 Immature Gran % (Auto) 0.200 Neut % (Auto) 55.9 Lymph % (Auto) 30.0 Cooper % (Auto) 7.5 Eos % (Auto) 6.0 H Baso % (Auto) 0.4 Absolute Neuts (auto) 2.6 Absolute Lymphs (auto) 1.39 Nucleated RBC % 0 Sodium 141 Potassium 3.5 Chloride 110 H Carbon Dioxide 26.0 Anion Gap 5 BUN 8 Creatinine 1.00 Estim Creat Clear Calc 69.56 Est GFR (MDRD) Af Amer 76 Est GFR (MDRD) Non-Af 62 BUN/Creatinine Ratio 8.0 L Glucose 72 L Calcium 8.9 Fld Polynuclear WBCs # Fld Polynuclear WBCs % Fluid Mononuclear WBCs Fld Mononuclear WBCs % CSF Appearance CSF Color CSF WBC CSF Cell Count Tube # CSF Total Cell Counted CSF Glucose 43 CSF Total Protein 236.0 H 09/11/22 15:30 WBC RBC Hgb Hct MCV MCH MCHC RDW Std Deviation RDW Coeff of Cricket Plt Count MPV Immature Gran % (Auto) Neut % (Auto) Lymph % (Auto) Cooper % (Auto) Eos % (Auto) Baso % (Auto) Absolute Neuts (auto) Absolute Lymphs (auto) Nucleated RBC % Sodium Potassium Chloride Carbon Dioxide Anion Gap BUN Creatinine Estim Creat Clear Calc Est GFR (MDRD) Af Amer Est GFR (MDRD) Non-Af BUN/Creatinine Ratio Glucose Calcium Fld Polynuclear WBCs # 0.017 Fld Polynuclear WBCs % 10.4 Fluid Mononuclear WBCs 0.147 Fld Mononuclear WBCs % 89.6 CSF Appearance CLEAR CSF Color COLORLESS CSF WBC 0.164 H CSF Cell Count Tube # 4 CSF Total Cell Counted 0.164 CSF Glucose CSF Total Protein Radiography Diagnostic Testing: Clinical Impression(s) from Imaging Studies Head CTA 09/11/22 11:13 IMPRESSION: Normal [place] of [place] without a demonstrated aneurysm or hemodynamically significant stenosis. Pansinusitis. Electronically Signed: Tacho Loja MD at 12:04 EDT Reading Location ID and State: [facility] / [place] , Service support , Management Discussion w/another healthcare provider: Hospitalist and [employer] Operator (ID) Procedures Lumbar Puncture Consent/Risks: Consent for procedure obtained and Risks/Benefits/Alternatives Discussed Lumbar Puncture Description: Left, Lateral (Decubitus, pretreated with 4 cc of localized 1% plain lidocaine), Sterile Prep, Betadine Prep, Sterile Technique and L3-4 Spinal Needle: 22ga Opening Pressure: 15 cm H2O Fluid Color: Clear and colorless Discharge Plan Dx/Rx/DC Orders Clinical Impression: Acute headache, Elevated CSF protein Disposition Disposition: [facility]
[2022-09-11] MEDS: Metoclopramide 10 MG/2 ML Vial 5 MG IV (10:14)
[2022-09-11 10:21] LABS: Absolute Lymphocyte Count 1.39 X10^3/uL (0.83-4.51); Absolute Neutrophil Count 2.6 X10^3/uL (2.0-7.7); Basophil# 0.02 X10^3/uL; Basophil% 0.4 % (0-1); Eosinophil# 0.28 X10^3/uL; Hemoglobin 13.7 g/dL (12.0-15.0); Lymphocyte # 1.39 X10^3/ul (0.83-4.51); Mean Corp Hgb Conc 33.4 g/dL (32-36); Mean Corpuscular Hgb 30.3 pg (27.0-32.0); Mean Corpuscular Volume 90.7 fL (81-99); Mean Platelet Vol. 10.3 fl (6.2-12.0); Monocyte# 0.35 X10^3/uL; Monocyte% 7.5 % (0-10); NRBC Flagged by Analyzer 0 % (0-5); Neutrophil # 2.59 X10^3/uL (2.7-7.7); Neutrophil % 55.9 % (47-70); Platelet Count 319 K/mm3 (150-450); RBC Distribution Width CV 12.8 % (11.6-14.6); RBC Distribution Width SD 42.5 fl (35.1-43.9); Red Blood Count 4.52 M/mm3 (4.2-5.4); White Blood Count 4.6 K/mm3 (4.4-11.0)
[2022-09-11 10:28] LABS: Anion Gap 5 (5-15); BUN 8 mg/dL (7-18); Calcium,Total 8.9 mg/dL (8.5-10.1); Chloride 110 mmol/L (98-107); EST Glomerular Filtration Rate 62 mL/min (>60); Est Glom Filt Rate - Afr Amer 76 mL/min (>60); Estimated Creatinine Clearance 69.56 ml/min; Glucose 72 mg/dL (74-106); Potassium 3.5 mmol/L (3.5-5.1); Sodium Level 141 mmol/L (136-145)
[2022-09-11] MEDS: Morphine 4 MG/ML Syringe IV ×3 (11:01→17:21)
--- NOTE | 2022-09-11 11:13 | CT_ITS ---
STUDY: CTA OF THE BRAIN REASON FOR EXAM: Female, 52 years old. Sudden headache, neck/back pain, r/o aneurysm RADIATION DOSAGE (If Supplied By Facility): CTDIvol = ( 27.40 ) mGy, DLP = ( 1163.84 ) mGycm TECHNIQUE: CT angiography was performed with a multi-detector CT scanner. Data acquisition was obtained from the skull base through the vertex following intravenous administration of IV 100mL Isovue-370. MIP images were reconstructed from the axial data set. Post-processing of the angiographic images was performed, with multiplanar reformation and 3D reconstruction. Individualized dose optimization techniques were used for this CT. COMPARISON: None. FINDINGS: Normal bilateral petrous carotid arteries. Normal right cavernous carotid artery with a normal supraclinoid bifurcation. Normal left cavernous carotid artery with a normal supraclinoid bifurcation. Normal right A1 segments of the anterior cerebral artery. Normal left A1 segments of the anterior cerebral artery. Normal intact anterior communicating artery (ACOM). Normal bilateral A2 segments of the anterior cerebral arteries. Normal right M1 and M2 segments of the middle cerebral arteries, with a normal M1 bifurcation. Normal left M1 and M2 segments of the middle cerebral arteries, with a normal M1 bifurcation. Normal right posterior communicating artery (PCOM). Normal left posterior communicating artery (PCOM). Normal bilateral vertebral arteries. Normal basilar artery with a normal basilar bifurcation. The visualized bilateral superior cerebellar (SCA) arteries are normal. Normal bilateral P1, P2 and visualized P3 segments of the posterior cerebral arteries. There is no demonstrated aneurysm of the [place] of [place]. There is no demonstrated abnormality of the visualized brain. Mucosal thickening of the maxillary sinuses bilaterally. Partial opacification of the ethmoid sinuses. Mucosal thickening of the anterior aspect of the sphenoid sinus as well as the left frontal sinus. CT/CTA Head W/WO Contrast IMPRESSION: Normal [place] of [place] without a demonstrated aneurysm or hemodynamically significant stenosis. Pansinusitis. Electronically Signed: Tacho Loja MD at 12:04 EDT ,
[2022-09-11 17:01] VITALS: BP 122/78
[2022-09-11 17:01] LABS: Body Fluid Mononuclear WBC # 0.147 10^3/uL; Body Fluid Mononuclear WBC % 89.6 %; Body Fluid Polynuclear WBC # 0.017 10^3/uL; Body Fluid Polynuclear WBC % 10.4 %; Total Cell Count CSF 0.164 10^3/uL; White Count, CSF 0.164 10^3/uL (0.000-0.005)
[2022-09-11 17:04] LABS: Appearance CSF (character) CLEAR (Clear); Auto B Fluid Analyzer BKGD Ct COUNTS W/IN LIMITS (W/IN LIMITS); CSF Color COLORLESS (Colorless); Tested Tube # 4
[2022-09-11 17:05] LABS: Glucose Spinal Fluid 43 mg/dL (40-75)
--- NOTE | 2022-09-11 17:27 | NURSING ---
MED SURG FIFI ALTAMIRANO, HIGH CFS PROT, R/O MENINGITIS
[2022-09-11 17:33] LABS: RBC Count, Spinal Fluid 18 /mm-3 (None seen)
--- NOTE | 2022-09-11 17:44 | PCM.HP.STD ---
[facility] - General General Date of Service: 09/11/22 Chief Complaint: headache and back pain HPI Narrative MICK CUEVAS, is a 52 F who presentsWith severe posterior headache as well as lower back pain. In addition patient has some pain going down her legs down to her knees. Symptoms began on the 13 while at work. Patient denies any trauma. Patient denies any photophobia or any scotoma. Patient has had headaches but never like this. 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 She has been given a card because of the rare possibility of arya herpes B virus. She was provided the card to the emergency room. Patient wears a face shield at work but does not wear a mask and otherwise uses PPE. No other coworkers that she is aware of are sick. Patient underwent lumbar puncture that was uncomplicated in the emergency room. The emergency room physician spoke with infectious disease who recommended acyclovir. Studies were sent for West Nile, enterovirus, HSV 1 and 2. [facility] Medical History Hypothyroid Home Medications levothyroxine 125 mcg tablet 125 mcg PO DAILY THYROID 09/11/22 [History Last Taken 09/11/22] Allergy/AdvReac Type Severity Reaction Status Date / Time No Known Allergies Allergy Verified 08/23/17 13:46 Family History (Updated 09/11/22 @ 17:[address] Alan Campo DO) Other CVA (cerebral vascular accident) Social History (Updated 09/11/22 @ 17:[address] Alan Campo DO) Smoking Status: Never smoker alcohol intake: current alcohol intake frequency: holidays/special occasions only ROS ROS Narrative Patient has difficulty flexing and bending her neck. Patient hit pothole and that caused some pain throughout her body but otherwise all review of systems were negative except as mentioned above in the history of present illness and the other review of systems. Vital Signs Vital Signs Vital Signs: 09/11/22 09:42 Temperature 36.7 C Temperature Source Temporal Pulse Rate 88 Respiratory Rate 18 Blood Pressure 131/84 H Blood Pressure Mean 99 Pulse Ox 100 Oxygen Delivery Method Room Air Weight Weight: 102.92 kg Body Mass Index (BMI) 33.5 Physical Exam Const alert and no apparent distress HEENT normocephalic, head/scalp atraumatic, hearing grossly normal bilaterally, moist oral mucous membranes and dentition normal Eyes PERRL and EOMs intact bilaterally Eyes Narrative: No icterus Neck Neck Narrative: No meningismus Resp normal respiratory effort, no retractions, no use of accessory muscles and clear to auscultation bilaterally Cardio regular rate, regular rhythm, S1 normal heart sound and S2 normal heart sound GI normal to inspection, nondistended, normoactive bowel sounds, soft to palpation, non-tender and non-distended Extremity normal to inspection, full ROM and no clubbing, cyanosis or edema Neuro oriented x3, CN's II-XII intact bilaterally, moves all extremities and no focal motor deficits Neuro Narrative: Straight leg raise was negative for neck pain but patient did have pain in her lower extremities. Patient did have some hyperreflexia of the left patella. Patient did have 2 beat clonus on her left. Psych affect normal Results Lab / Micro Data Attestation: I reviewed the patient's lab results. Result Diagrams: 09/11/22 10:05 09/11/22 10:05 Labs: Laboratory Results - last 24 hr 09/11/22 10:05: WBC 4.6, RBC 4.52, Hgb 13.7, Hct 41.0, MCV 90.7, MCH 30.3, MCHC 33.4, RDW Std Deviation 42.5, RDW Coeff of Cricket 12.8, Plt Count 319, MPV 10.3, Immature Gran % (Auto) 0.200, Neut % (Auto) 55.9, Lymph % (Auto) 30.0, Oliver % (Auto) 7.5, Eos % (Auto) 6.0 H, Baso % (Auto) 0.4, Absolute Neuts (auto) 2.6, Absolute Lymphs (auto) 1.39, Nucleated RBC % 0 09/11/22 10:05: Sodium 141, Potassium 3.5, Chloride 110 H, Carbon Dioxide 26.0, Anion Gap 5, BUN 8, Creatinine 1.00, Estim Creat Clear Calc 69.56, Est GFR (MDRD) Af Amer 76, Est GFR (MDRD) Non-Af 62, BUN/Creatinine Ratio 8.0 L, Glucose 72 L, Calcium 8.9 09/11/22 15:30: CSF Glucose 43, CSF Total Protein 236.0 H 09/11/22 15:30: Fld Polynuclear WBCs # 0.017, Fld Polynuclear WBCs % 10.4, Fluid Mononuclear WBCs 0.147, Fld Mononuclear WBCs % 89.6, CSF Appearance CLEAR, CSF Color COLORLESS, CSF WBC 0.164 H, CSF RBC 18 H, CSF Cell Count Tube # 4, CSF Total Cell Counted 0.164 Micro: Microbiology 09/11/22 15:30 Csf, Spinal Fluid Gram Stain - Preliminary Radiology Impression Head CTA 09/11/22 11:13 IMPRESSION: Normal [place] of [place] without a demonstrated aneurysm or hemodynamically significant stenosis. Pansinusitis. Electronically Signed: Tacho Loja MD at 12:04 EDT , Assessment & Plan Assessment/Plan (1) Acute headache: PLAN: Etiology could be migraine versus encephalitis. Patient did have elevated CSF protein as well as slightly elevated white cells in the CSF. This does not indicate that she does have encephalitis but cannot be ruled out at this time. Patient will continue to be on acyclovir. Infectious disease will be consulted. Studies for West Nile, HSV 1 and HSV 2 and enterovirus are currently pending. We will schedule acetaminophen and have as needed ketorolac. Avoid narcotics if possible. 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 She does wear a face shield but she does not wear a mask. She was provided a card where she works for the potential transmission of herpes B virus which can cause a headache. Patient to be in droplet precautions for the time being. Given the patient's history, it would seem highly unlikely that patient would have contracted this virus. Seems to be more related with cutaneous spread from bites. 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 (2) Hyperreflexia: PLAN: Patient states that her pain is nonconfluent through her back but involves her head and then down in her lower back. She does have some hyperreflexia as well as some clonus on the left. I would also be concerned that patient could have a back issue, such as a herniated disc. We will order a lumbar spine x-ray. May consider MRI based on the studies and patient's course. PLAN: Plan Hypothyroidism: Continue levothyroxine VTE prophylaxis: SCDs. Hold off on chemical prophylaxis given the patient's recent lumbar puncture. CODE STATUS: Addressed with the patient. Patient wished to be full code. Charges/Coding Visit Charges Inpatient E&M: 63333 Init Hosp L3
[2022-09-11 18:00] VITALS: BP 109/49
[2022-09-11 18:05] VITALS: BP 125/82; PULSE 62; RESP 18; TEMP 36.8; O2SAT 100
[2022-09-11 18:05] LABS: Body Fluid QC Type(s) BF1Q,BF2Q; Eosinophils,CSF 1 % (None seen); Lymphocytes,CSF 67 % (40 - 80); Monocytes,CSF 24 % (15 - 45); Neutrophils,CSF 8 % (0 - 6)
[2022-09-11 20:36] VITALS: BMI 32.8
--- NOTE | 2022-09-11 21:00 | RAD_ITS ---
INDICATION: back pain EXAMINATION/TECHNIQUE: X-RAY - XR Spine Lumbar 2 or 3 Views COMPARISON: None. FINDINGS: VERTEBRAE: 5 nonrib-bearing lumbar type vertebra with normal morphology. Preserved lumbar lordosis. Moderate Lumbar facet arthropathy L4-5 with mild grade 1 anterolisthesis. Most prominent facet arthropathy at L3-4 and L5-S1. . No aggressive osseous lesion. DISCS: Mild disc height loss at L4-5.. INCLUDED ABDOMEN: Included bowel gas pattern is non-obstructive. IV contrast filled bladder. RAD/Lumbar Spine 2 or 3 Views IMPRESSION: Lower lumbar spondylosis most prominent at L4-5 as above. Electronically Signed: Claudio Emanuel MD at 1:06 EDT ,
[2022-09-11] MEDS: 0.9% Normal Saline 1,000 ML 150 ML IV (22:09)
[2022-09-11] MEDS: Acetaminophen 500 MG Tablet 1000 MG PO (22:13)
[2022-09-12 05:23] VITALS: BP 113/73; PULSE 68; RESP 18; TEMP 36.6; O2SAT 100
[2022-09-12] MEDS: Acetaminophen 500 MG Tablet 1000 MG PO ×3 (05:25→21:12)
[2022-09-12] MEDS: Levothyroxine 125 MCG Tablet PO (05:25)
[2022-09-12 05:38] LABS: Absolute Lymphocyte Count 1.35 X10^3/uL (0.83-4.51); Absolute Neutrophil Count 2.2 X10^3/uL (2.0-7.7); Basophil# 0.02 X10^3/uL; Basophil% 0.5 % (0-1); Eosinophil# 0.34 X10^3/uL; Eosinophils% 7.9 % (0-5); Hematocrit 39.7 % (37-47); Hemoglobin 12.6 g/dL (12.0-15.0); Lymphocyte # 1.35 X10^3/ul (0.83-4.51); Lymphocyte % 31.3 % (19-41); Mean Corp Hgb Conc 31.7 g/dL (32-36); Mean Corpuscular Hgb 29.3 pg (27.0-32.0); Mean Corpuscular Volume 92.3 fL (81-99); Mean Platelet Vol. 10.7 fl (6.2-12.0); Monocyte# 0.37 X10^3/uL; Monocyte% 8.6 % (0-10); NRBC Flagged by Analyzer 0 % (0-5); Neutrophil # 2.23 X10^3/uL (2.7-7.7); Neutrophil % 51.5 % (47-70); Platelet Count 289 K/mm3 (150-450); RBC Distribution Width CV 12.7 % (11.6-14.6); RBC Distribution Width SD 43.4 fl (35.1-43.9); White Blood Count 4.3 K/mm3 (4.4-11.0)
[2022-09-12 06:16] LABS: ALB/GLOB Ratio 0.9 RATIO (0.9-2.4); AST(SGOT) 16 U/L (15-37); Alanine Aminotransfer ALT/SGPT 15 U/L (13-56); Albumin, Serum 3.2 g/dL (3.2-5.0); Alkaline Phosphatase 47 U/L (45-117); Anion Gap 2 (5-15); BUN 8 mg/dL (7-18); BUN/Creat Ratio 9.2 RATIO (10-20); Calcium,Total 8.5 mg/dL (8.5-10.1); Chloride 111 mmol/L (98-107); Creatinine, Serum 0.87 mg/dL (0.55-1.02); EST Glomerular Filtration Rate 73 mL/min (>60); Est Glom Filt Rate - Afr Amer 88 mL/min (>60); Estimated Creatinine Clearance 79.95 ml/min; Globulin 3.6 g/dL (2.2-4.2); Glucose 97 mg/dL (74-106); Potassium 3.8 mmol/L (3.5-5.1); Protein, Total 6.8 g/dL (6.4-8.2); Sodium Level 140 mmol/L (136-145)
--- NOTE | 2022-09-12 07:30 | PCM.PN.HOSP ---
Reason for Visit Reason for Visit: Diagnoses Abnormal reflex (09/11/22) Headache, unspecified (09/11/22) Subjective Subjective Feels better. Back and leg pain resolved. Objective Data Objective Data Vital Signs: Vital Signs Temp Pulse Resp BP Pulse Ox O2 Del Method 36.6 C 68 18 113/73 100 Room Air 09/12/22 05:23 09/12/22 05:23 09/12/22 05:23 09/12/22 05:23 09/12/22 05:23 09/12/22 05:23 Oxygen Delivery Method Room Air Weight: 101 kg Body Mass Index (BMI) 32.8 Intake & Output: Intake and Output for Last 24 Hours 09/10/22 09/11/22 09/12/22 23:59 23:59 23:59 Intake Total 536.4 / 536.4 1178.2 / 1178.2 Balance 536.4 / 536.4 1178.2 / 1178.2 Lab / Micro Data Result Diagrams: 09/12/22 04:58 09/12/22 04:58 Labs: Laboratory Results - last 24 hr 09/11/22 10:05: WBC 4.6, RBC 4.52, Hgb 13.7, Hct 41.0, MCV 90.7, MCH 30.3, MCHC 33.4, RDW Std Deviation 42.5, RDW Coeff of Cricket 12.8, Plt Count 319, MPV 10.3, Immature Gran % (Auto) 0.200, Neut % (Auto) 55.9, Lymph % (Auto) 30.0, [place]clenn[place] % (Auto) 7.5, Eos % (Auto) 6.0 H, Baso % (Auto) 0.4, Absolute Neuts (auto) 2.6, Absolute Lymphs (auto) 1.39, Nucleated RBC % 0 09/11/22 10:05: Sodium 141, Potassium 3.5, Chloride 110 H, Carbon Dioxide 26.0, Anion Gap 5, BUN 8, Creatinine 1.00, Estim Creat Clear Calc 69.56, Est GFR (MDRD) Af Amer 76, Est GFR (MDRD) Non-Af 62, BUN/Creatinine Ratio 8.0 L, Glucose 72 L, Calcium 8.9 09/11/22 15:30: CSF Glucose 43, CSF Total Protein 236.0 H 09/11/22 15:30: Fld Polynuclear WBCs # 0.017, Fld Polynuclear WBCs % 10.4, Fluid Mononuclear WBCs 0.147, Fld Mononuclear WBCs % 89.6, CSF Appearance CLEAR, CSF Color COLORLESS, CSF WBC 0.164 H, CSF RBC 18 H, CSF Cell Count Tube # 4, CSF Total Cell Counted 0.164, CSF Neutrophils 8 H, CSF Lymphocytes 67, CSF Monocytes 24, CSF Eosinophils 1 H, CSF Comment May follow 09/12/22 04:58: WBC 4.3 L, RBC 4.30, Hgb 12.6, Hct 39.7, MCV 92.3, MCH 29.3, MCHC 31.7 L D, RDW Std Deviation 43.4, RDW Coeff of Cricket 12.7, Plt Count 289, MPV 10.7, Immature Gran % (Auto) 0.200, Neut % (Auto) 51.5, Lymph % (Auto) 31.3, [place]clenn[place] % (Auto) 8.6, Eos % (Auto) 7.9 H, Baso % (Auto) 0.5, Absolute Neuts (auto) 2.2, Absolute Lymphs (auto) 1.35, Nucleated RBC % 0 09/12/22 04:58: Sodium 140, Potassium 3.8, Chloride 111 H, Carbon Dioxide 27.0, Anion Gap 2 L, BUN 8, Creatinine 0.87, Estim Creat Clear Calc 79.95, Est GFR (MDRD) Af Amer 88, Est GFR (MDRD) Non-Af 73, BUN/Creatinine Ratio 9.2 L, Glucose 97, Calcium 8.5, Total Bilirubin 0.40, AST 16, ALT 15, Alkaline Phosphatase 47, Total Protein 6.8, Albumin 3.2, Globulin 3.6, Albumin/Globulin Ratio 0.9 Micro: Microbiology 09/11/22 15:30 Csf, Spinal Fluid Gram Stain - Preliminary Radiography Diagnostic Testing: Radiology Impression Head CTA 09/11/22 11:13 IMPRESSION: Normal [place] without a demonstrated aneurysm or hemodynamically significant stenosis. Pansinusitis. Electronically Signed: Tacho Loja MD at 12:04 EDT , Lumbar Spine X-Ray 09/11/22 21:00 IMPRESSION: Lower lumbar spondylosis most prominent at L4-5 as above. Electronically Signed: Claudio Emanuel MD at 1:06 EDT , Physical Exam Const alert and no apparent distress Neck Neck Narrative: no meningismus Neuro Neuro Narrative: patellar DTRs WNL normal. no clonus. Assessment & Plan Assessment/Plan (1) Acute headache: PLAN: Etiology could be migraine versus encephalitis. Patient did have elevated CSF protein as well as slightly elevated white cells in the CSF. This does not indicate that she does have encephalitis but cannot be ruled out at this time. Patient will continue to be on acyclovir. Infectious disease will be consulted. Studies for West Nile, HSV 1 and HSV 2 and enterovirus are currently pending. We will schedule acetaminophen and have as needed ketorolac. Avoid narcotics if possible. 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 She does wear a face shield but she does not wear a mask. She was provided a card where she works for the potential transmission of herpes B virus which can cause a headache. Patient to be in droplet precautions for the time being. Given the patient's history, it would seem highly unlikely that patient would have contracted this virus. Seems to be more related with cutaneous spread from bites. 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 (2) Hyperreflexia: PLAN: Resolved Patient states that her pain is nonconfluent through her back but involves her head and then down in her lower back. She does have some hyperreflexia as well as some clonus on the left. I would also be concerned that patient could have a back issue, such as a herniated disc. Lumbar Xray reviewed and showed no acute process. No additional imaging at this time. PLAN: Plan Hypothyroidism: Continue levothyroxine VTE prophylaxis: SCDs. Hold off on chemical prophylaxis given the patient's recent lumbar puncture. CODE STATUS: Addressed with the patient. Patient wished to be full code. Charges/Coding Visit Charges Inpatient E&M: 58177 Subs Hosp L2
--- NOTE | 2022-09-12 11:09 | CON.PCM.ID_ITS ---
Assessment & Plan Assessment/Plan (1) Aseptic meningitis: PLAN: Did have some hyperesthesias and is at risk for Herpes B virus from macaq ue blood/urine exposure at her job. Sx much improved on acyclovir. No clear other source of this meningitis, hsv and west nile pcr pending. Spoke with lab, will send out for herpes B testing of CSF to [facility] lab. Spoke with pharmacy, will order ganciclovir 5mg/kg iv q12h to replace acyclovir when it is available later today as it is the drug of choice for herpes B. Will follow, thank you, d/w Dr. Campo this AM. HPI Consult Data Date of Consult: 09/12/22 HPI Narrative Reason for Consultation: meningitis HPI Narrative: MICK CUEVSA, is a 52 F who presented 09/11 to ED here at [facility] with se sameera posterior headache and neck stiffness, sx started suddenly 09/10. Had some pain radiating down legs, some mild fever/chills, some sensation of very sensitive skin. No double vision, no trouble walking, no vision changes, no mental status changes. No sick contacts, no travel out of state or out of country for at least past few months. [place], but no hiking, no tick bites, no rash, no mosquito bites. No new medicines. No h/o herpes/cold sores. 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 No known needle sticks or exposures. She has a card detailing she can be at risk for Herpes B infection. Came to ED, LP done, started on acyclovir and admitted. Headache, neck pain, skin sensation changes are all improved. Full ROS performed and neg except as noted above. [facility] Medical History Hypothyroid Home Medications levothyroxine 125 mcg tablet 125 mcg PO DAILY THYROID 09/11/22 [History Last Taken 09/11/22] Allergy/AdvReac Type Severity Reaction Status Date / Time No Known Allergies Allergy Verified 08/23/17 13:46 Family History (Updated 09/11/22 @ 17:[address] Alan Campo, ) Other CVA (cerebral vascular accident) Social History (Updated 09/11/22 @ 17:[address] Alan Campo, DO) Smoking Status: Never smoker alcohol intake: current alcohol intake frequency: holidays/special occasions only Physical Exam Const alert, oriented x3 and no apparent distress General Appearance: cooperative Exam Limitations: no limitations HEENT normocephalic and head/scalp atraumatic Mouth: oral and palatal mucosa normal Eyes PERRL and EOMs intact bilaterally Neck Neck Narrative: some soreness with neck movement, but good ROM Resp normal respiratory effort and normal air movement Cardio regular rate and regular rhythm GI soft to palpation, non-tender and non-distended Extremity no clubbing, cyanosis or edema Skin no rashes or lesions noted Neuro oriented x3, CN's II-XII intact bilaterally and moves all extremities Lab / Micro Data Attestation: I reviewed the patient's lab results. Result Diagrams: 09/12/22 04:58 09/12/22 04:58 Labs: Laboratory Results - last 24 hr 09/11/22 15:30: CSF Glucose 43, CSF Total Protein 236.0 H 09/11/22 15:30: Fld Polynuclear WBCs # 0.017, Fld Polynuclear WBCs % 10.4, Fluid Mononuclear WBCs 0.147, Fld Mononuclear WBCs % 89.6, CSF Appearance CLEAR, CSF Color COLORLESS, CSF WBC 0.164 H, CSF RBC 18 H, CSF Cell Count Tube # 4, CSF Total Cell Counted 0.164, CSF Neutrophils 8 H, CSF Lymphocytes 67, CSF Monocytes 24, CSF Eosinophils 1 H, CSF Comment May follow 09/12/22 04:58: WBC 4.3 L, RBC 4.30, Hgb 12.6, Hct 39.7, MCV 92.3, MCH 29.3, MCHC 31.7 L D, RDW Std Deviation 43.4, RDW Coeff of Cricket 12.7, Plt Count 289, MPV 10.7, Immature Gran % (Auto) 0.200, Neut % (Auto) 51.5, Lymph % (Auto) 31.3, [place] % (Auto) 8.6, Eos % (Auto) 7.9 H, Baso % (Auto) 0.5, Absolute Neuts (auto) 2.2, Absolute Lymphs (auto) 1.35, Nucleated RBC % 0 09/12/22 04:58: Sodium 140, Potassium 3.8, Chloride 111 H, Carbon Dioxide 27.0, Anion Gap 2 L, BUN 8, Creatinine 0.87, Estim Creat Clear Calc 79.95, Est GFR (MDRD) Af Amer 88, Est GFR (MDRD) Non-Af 73, BUN/Creatinine Ratio 9.2 L, Glucose 97, Calcium 8.5, Total Bilirubin 0.40, AST 16, ALT 15, Alkaline Phosphatase 47, Total Protein 6.8, Albumin 3.2, Globulin 3.6, Albumin/Globulin Ratio 0.9 Micro: Microbiology 09/11/22 15:30 Csf, Spinal Fluid Gram Stain - Preliminary Radiology Impression Head CTA 09/11/22 11:13 IMPRESSION: Normal [place] without a demonstrated aneurysm or hemodynamically significant stenosis. Pansinusitis. Electronically Signed: Tacho Loja MD at 12:04 EDT , Lumbar Spine X-Ray 09/11/22 21:00 IMPRESSION: Lower lumbar spondylosis most prominent at L4-5 as above. Electronically Signed: Claudio Emanuel MD at 1:06 EDT ,
--- NOTE | 2022-09-12 11:15 | CASEMGMT ---
RN CM Face to Face with patient for initial transition planning/care coordination assessment. RN CM introduced self and role at [facility]. Patient lying in bed, alert and oriented. Patient willing to participate in assessment and is able to answer all questions appropriately. Care providers, pharmacy, and demographics verified. Patient wishes to discharge home, denies need for home health at this time. Patient states she has no further needs or concerns at this time. CM to follow for discharge planning needs that may arise. PCP: Emigdio Specialists: none Preferred Pharmacy: [facility] Insurance: [employer] Prescription Benefit: yes Living Will/HPOA: yes, Adal Ramsay LNOK: Living Arrangements: Patient lives with in a 2 story home with bed and bath on first floor. Patient states she is independent at home and able to ambulate stairs. Transportation: self, DME/HHC: Patient denies DME in the home. No previous HHC or SNF. Disposition Plan: Patient to discharge home with family support and follow-up plans in place. Bárbara LUBIN, RN, CM
[2022-09-12 13:32] LABS: Pathologist Review Reviewed
[2022-09-12 14:12] VITALS: BP 118/91; PULSE 68; RESP 16; TEMP 36.8; O2SAT 97
[2022-09-12] MEDS: Acyclovir 800 MG in Dextrose 5% 250 ML 263.2 MG IV (14:41)
[2022-09-12] MEDS: 0.9% Saline Lock 10 ML Syringe IV ×2 (14:43→22:03)
[2022-09-12 18:00] VITALS: BP 139/91; PULSE 88; RESP 18; TEMP 36.8; O2SAT 100
[2022-09-12 21:58] VITALS: BP 136/86; PULSE 76; RESP 16; TEMP 36.7; O2SAT 100
[2022-09-13 04:00] VITALS: BP 129/84; PULSE 81; RESP 16; TEMP 36.3; O2SAT 99
[2022-09-13] MEDS: Levothyroxine 125 MCG Tablet PO (05:16)
[2022-09-13] MEDS: Acetaminophen 500 MG Tablet 1000 MG PO ×2 (05:16→13:25)
[2022-09-13 05:51] LABS: Absolute Lymphocyte Count 1.26 X10^3/uL (0.83-4.51); Absolute Neutrophil Count 1.3 X10^3/uL (2.0-7.7); Basophil# 0.02 X10^3/uL; Basophil% 0.6 % (0-1); Eosinophil# 0.38 X10^3/uL; Eosinophils% 11.6 % (0-5); Hematocrit 38.2 % (37-47); Hemoglobin 12.5 g/dL (12.0-15.0); Lymphocyte # 1.26 X10^3/ul (0.83-4.51); Lymphocyte % 38.5 % (19-41); Mean Corp Hgb Conc 32.7 g/dL (32-36); Mean Corpuscular Volume 91.8 fL (81-99); Mean Platelet Vol. 10.7 fl (6.2-12.0); Monocyte# 0.31 X10^3/uL; Monocyte% 9.5 % (0-10); NRBC Flagged by Analyzer 0 % (0-5); Neutrophil # 1.28 X10^3/uL (2.7-7.7); Neutrophil % 39.2 % (47-70); Platelet Count 269 K/mm3 (150-450); RBC Distribution Width CV 12.6 % (11.6-14.6); RBC Distribution Width SD 42.6 fl (35.1-43.9); Red Blood Count 4.16 M/mm3 (4.2-5.4); White Blood Count 3.3 K/mm3 (4.4-11.0)
[2022-09-13 06:29] LABS: Anion Gap 3 (5-15); BUN 9 mg/dL (7-18); BUN/Creat Ratio 11.5 RATIO (10-20); Calcium,Total 8.6 mg/dL (8.5-10.1); Chloride 113 mmol/L (98-107); Creatinine, Serum 0.79 mg/dL (0.55-1.02); EST Glomerular Filtration Rate 82 mL/min (>60); Est Glom Filt Rate - Afr Amer 99 mL/min (>60); Estimated Creatinine Clearance 88.05 ml/min; Glucose 88 mg/dL (74-106); Potassium 4.4 mmol/L (3.5-5.1); Sodium Level 142 mmol/L (136-145)
--- NOTE | 2022-09-13 07:54 | PN.HOSP_ITS ---
Reason for Visit Reason for Visit: Diagnoses Nonpyogenic meningitis (09/11/22) Abnormal reflex (09/11/22) Headache, unspecified (09/11/22) Subjective Subjective Feels better. No further headache. Still with some leg pain. Objective Data Objective Data Vital Signs: Vital Signs Temp Pulse Resp BP Pulse Ox O2 Del Method 36.3 C L 81 16 129/84 H 99 Room Air 09/13/22 04:00 09/13/22 04:00 09/13/22 04:00 09/13/22 04:00 09/13/22 04:00 09/13/22 04:33 Oxygen Delivery Method Room Air Weight: 101 kg Body Mass Index (BMI) 32.8 Intake & Output: Intake and Output for Last 24 Hours 09/11/22 09/12/22 09/13/22 23:59 23:59 23:59 Intake Total 536.4 / 536.4 1629.2 / 1629.2 Balance 536.4 / 536.4 1629.2 / 1629.2 Lab / Micro Data Result Diagrams: 09/13/22 05:13 09/13/22 05:13 Labs: Laboratory Results - last 24 hr 09/11/22 15:30: CSF Comment Reviewed 09/13/22 05:13: WBC 3.3 L, RBC 4.16 L, Hgb 12.5, Hct 38.2, MCV 91.8, MCH 30.0, MCHC 32.7, RDW Std Deviation 42.6, RDW Coeff of Cricket 12.6, Plt Count 269, MPV 10.7, Immature Gran % (Auto) 0.600, Neut % (Auto) 39.2 L, Lymph % (Auto) 38.5, [place] % (Auto) 9.5, Eos % (Auto) 11.6 H, Baso % (Auto) 0.6, Absolute Neuts (auto) 1.3 L, Absolute Lymphs (auto) 1.26, Nucleated RBC % 0 09/13/22 05:13: Sodium 142, Potassium 4.4, Chloride 113 H, Carbon Dioxide 26.0, Anion Gap 3 L, BUN 9, Creatinine 0.79, Estim Creat Clear Calc 88.05, Est GFR (MDRD) Af Amer 99, Est GFR (MDRD) Non-Af 82, BUN/Creatinine Ratio 11.5, Glucose 88, Calcium 8.6 Micro: Microbiology 09/11/22 15:30 Csf, Spinal Fluid Gram Stain - Final 09/11/22 15:30 Csf, Spinal Fluid CSF Culture - Preliminary No growth in 24 hours. Final to follow. Physical Exam Const alert and no apparent distress Neuro oriented x3 Assessment & Plan Assessment/Plan (1) Acute headache: PLAN: Etiology could be migraine versus encephalitis. Patient did have elevated CSF protein as well as slightly elevated white cells in the CSF. This does not indicate that she does have encephalitis but cannot be ruled out at this time. Studies for West Nile, HSV 1 and HSV 2 and enterovirus are currently pending. We will schedule acetaminophen and have as needed ketorolac. Avoid narcotics if possible. 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 She does wear a face shield but she does not wear a mask. She was provided a card where she works for the potential transmission of herpes B virus which can cause a headache. Patient to be in droplet precautions for the time being. Given the patient's history, it would seem highly unlikely that patient would have contracted this virus. Seems to be more related with cutaneous spread from bites. 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 ID sent CSF to [facility] for Herpes B testing. Changed antivirals to ganciclovir from acyclovir. Discussed with Dr. Zamudio, he states the patient is fine to be discharged and will continue with the valganciclovir. Follow-up with infectious diseases outpatient. (2) Hyperreflexia: PLAN: Resolved Patient states that her pain is nonconfluent through her back but involves her head and then down in her lower back. She does have some hyperreflexia as well as some clonus on the left. I would also be concerned that patient could have a back issue, such as a herniated disc. Lumbar Xray reviewed and showed no acute process. No additional imaging at this time. PLAN: Plan Hypothyroidism: Continue levothyroxine VTE prophylaxis: SCDs. Hold off on chemical prophylaxis given the patient's recent lumbar puncture. CODE STATUS: Addressed with the patient. Patient wished to be full code.
[2022-09-13] MEDS: 0.9% Saline Lock 10 ML Syringe IV (09:27)
[2022-09-13 10:00] VITALS: BP 132/94; PULSE 72; RESP 16; TEMP 36.6; O2SAT 98
--- NOTE | 2022-09-13 14:01 | PCM.PN.ID ---
Physical Exam Narrative Feeling back to normal, no headache, no fever, no neck pain Const alert and no apparent distress General Appearance: cooperative Resp normal air movement and clear to auscultation bilaterally Cardio regular rate and regular rhythm GI soft to palpation, non-tender and non-distended Skin no rashes or lesions noted ID ID: Route of nutrition/ use of supplements: [] Nutritional Intake: [] IV Site: [] Manzanares Catheter: [] Assessment & Plan Assessment/Plan (1) Aseptic meningitis: PLAN: Did have some hyperesthesias and is at risk for Herpes B virus from macaque blood/urine exposure at her job. Sx much improved on acyclovir. No clear other source of this meningitis, hsv and [place] pcr pending. Pending herpes B testing of CSF to [facility] lab. On ganciclovir. Sx now resolved. Will write for 12 days valcyte 900mg bid with bmp/cbc in one week. Will follow, d/w Dr. Campo and pharmacy
--- NOTE | 2022-09-13 14:30 | CASEMGMT ---
HOMA NAYAK updated by pharmacy of cost of PO antiviral at discharge. Per pharmacy, medication will be available at [facility] retail pharmacy Friday and cost is $271. Script recieved by ID for follow-up labs. HOMA NAYAK in to discuss po meds and cost with patient. Patient states she can afford medication. HOMA NAYAK instructed patient medication will be available Friday in [facility] retail and to scrap picker prior to 1pm. Script provided to patient for lab work. Patient had no further questions or concerns at this time.
--- NOTE | 2022-09-13 14:51 | DCINST_ITS ---
Discharge Instructions Diet Discharge Diet: No restrictions Dressing / Incision Call your doctor if you observe: - (Worsening headache. Worsening pain and leg pain. Increased weakness.) Follow Up Care Test Results: Test results from this visit will be discussed in further detail at your follow- up appointment, if applicable. Discharge Plan Admission Admit Date/Time: 09/11/22 17:38 Primary Reason for Your Visit: Aseptic meningitis Attending Provider: Alan Campo Primary Care Provider: Xavi Beal Consulting Providers: Kvng Zamudio Instructions Additional Instructions / Restrictions: You presented with a headache and back pain. Concern is for aseptic meningitis which could be of a viral infection. You are on valganciclovir, which is an antiviral medication. You will need to complete that medications. Studies were sent off for herpes b, as well as other viral studies. The studies are pending. Please follow-up with infectious disease in regards to the results of those. If you have any worsening symptoms, such as numbness, weakness, worsening headache or back pain, notify someone or come back to the emergency room. Current infectious disease, you do not need to isolated quarantine at this time. Discharge Orders/Prescriptions Prescriptions: New valganciclovir [Valcyte] 450 mg tablet 900 mg PO BID Qty: 48 0RF Continued levothyroxine 125 mcg tablet 125 mcg PO DAILY Label Comments: TAKE 1 TABLET BY MOUTH ONCE DAILY Referrals / Follow Up: Xavi Beal MD [Primary Care Provider] - Within 2 Weeks Kvng Zamudio MD [Med Staff - Active Staff] - Within 2 Weeks Disposition Disposition (needs filled in before D/C Order can be placed): Home, Self Care
--- NOTE | 2022-09-13 14:54 | PCM.DC.SUM ---
Providers Date of Admission: 09/11/22 Primary Care Physician: Dr. Xavi Beal MD Consultations 09/11/22 20:35 Consult: Infectious Disease Routine Consulting Provider: Kvng Zamudio Reason for Consult: encephalitis EMERGENT Consult: No MD Notified: Yes Date Notified: 09/11/22 Time Notified: 17:40 Method of Notification: ED Physician Initiated Reason For Visit: HEADACHE Diagnosis Discharge Diagnosis (1) Acute headache: Status: Acute Code(s): R51.9 - Headache, unspecified Plan: Etiology could be migraine versus encephalitis. Patient did have elevated CSF protein as well as slightly elevated white cells in the CSF. This does not indicate that she does have encephalitis but cannot be ruled out at this time. Studies for West Nile, HSV 1 and HSV 2 and enterovirus are currently pending. We will schedule acetaminophen and have as needed ketorolac. Avoid narcotics if possible. 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 She does wear a face shield but she does not wear a mask. She was provided a card where she works for the potential transmission of herpes B virus which can cause a headache. Patient to be in droplet precautions for the time being. Given the patient's history, it would seem highly unlikely that patient would have contracted this virus. Seems to be more related with cutaneous spread from bites. 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 ID sent CSF to [facility] for Herpes B testing. Changed antivirals to ganciclovir from acyclovir. Discussed with Dr. Zamudio, he states the patient is fine to be discharged and will continue with the valganciclovir. Follow-up with infectious diseases outpatient. (2) Hyperreflexia: Status: Acute Code(s): R29.2 - Abnormal reflex Plan: Resolved Patient states that her pain is nonconfluent through her back but involves her head and then down in her lower back. She does have some hyperreflexia as well as some clonus on the left. I would also be concerned that patient could have a back issue, such as a herniated disc. Lumbar Xray reviewed and showed no acute process. No additional imaging at this time. Plan Hypothyroidism: Continue levothyroxine VTE prophylaxis: SCDs. Hold off on chemical prophylaxis given the patient's recent lumbar puncture. CODE STATUS: Addressed with the patient. Patient wished to be full code. Medications at Discharge Home Medications levothyroxine 125 mcg tablet 125 mcg PO DAILY THYROID 09/11/22 valganciclovir 450 mg tablet (Valcyte) 900 mg PO BID #48 tabs 09/13/22 Hospital Course Operations None Procedures - (lumbar puncture. ) Summary of Care Provided Minutes Spent on Discharge: 35 Hospital Course: Presents with cute onset of headache and back pain. 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 And as she has a card that she is to give to healthcare providers about herpes 3. Patient underwent LP and studies were sent off for [place], enterovirus herpesvirus. Patient was seen by infectious disease and actually had some that sample sent off to [facility] for herpes B. Other treatment for it, if it is the case is for ganciclovir which patient be on for total 2 weeks. Seems unlikely that it is herpes to be but given the potential, she is being checked for that. Weight / BMI Weight Weight: 101 kg Body Mass Index (BMI) 32.8 ABG / Lab / Microbiology Data Result Diagrams: 09/13/22 05:13 09/13/22 05:13 Laboratory: Laboratory Results - last 24 hr 09/13/22 05:13: WBC 3.3 L, RBC 4.16 L, Hgb 12.5, Hct 38.2, MCV 91.8, MCH 30.0, MCHC 32.7, RDW Std Deviation 42.6, RDW Coeff of [place] 12.6, Plt Count 269, MPV 10.7, Immature Gran % (Auto) 0.600, Neut % (Auto) 39.2 L, Lymph % (Auto) 38.5, [place] % (Auto) 9.5, Eos % (Auto) 11.6 H, Baso % (Auto) 0.6, Absolute Neuts (auto) 1.3 L, Absolute Lymphs (auto) 1.26, Nucleated RBC % 0 09/13/22 05:13: Sodium 142, Potassium 4.4, Chloride 113 H, Carbon Dioxide 26.0, Anion Gap 3 L, BUN 9, Creatinine 0.79, Estim Creat Clear Calc 88.05, Est GFR (MDRD) Af Amer 99, Est GFR (MDRD) Non-Af 82, BUN/Creatinine Ratio 11.5, Glucose 88, Calcium 8.6 Microbiology: Microbiology 09/11/22 15:30 Csf, Spinal Fluid Gram Stain - Final 09/11/22 15:30 Csf, Spinal Fluid CSF Culture - Preliminary No growth in 24 hours. Final to follow. D/C Instructions Discharge Diet: No restrictions Call your doctor if you observe: - (Worsening headache. Worsening pain and leg pain. Increased weakness.) Meaningful Use Info Meaningful Use Diagnoses (Choose all that apply): None applicable Discharge Plan Admission Admit Date/Time: 09/11/22 17:38 Primary Reason for Your Visit: Aseptic meningitis Attending Provider: Alan Campo Primary Care Provider: Xavi Beal Consulting Providers: Kvng Zamudio Instructions Additional Instructions / Restrictions: You presented with a headache and back pain. Concern is for aseptic meningitis which could be of a viral infection. You are on valganciclovir, which is an antiviral medication. You will need to complete that medications. Studies were sent off for herpes b, as well as other viral studies. The studies are pending. Please follow-up with infectious disease in regards to the results of those. If you have any worsening symptoms, such as numbness, weakness, worsening headache or back pain, notify someone or come back to the emergency room. Current infectious disease, you do not need to isolated quarantine at this time. Discharge Orders/Prescriptions Prescriptions: New valganciclovir [Valcyte] 450 mg tablet 900 mg PO BID Qty: 48 0RF Continued levothyroxine 125 mcg tablet 125 mcg PO DAILY Label Comments: TAKE 1 TABLET BY MOUTH ONCE DAILY Referrals / Follow Up: Kvng Zamudio MD [Med Staff - Active Staff] - Within 2 Weeks Xavi Beal MD [Primary Care Provider] - Within 2 Weeks Disposition Disposition (needs filled in before D/C Order can be placed): Home, Self Care Charges/Coding Visit Charges Inpatient E&M: 24953 Disch Hosp >30min
[2022-09-13 16:00] VITALS: BP 130/92; PULSE 75; RESP 14; TEMP 36.6; O2SAT 99
[2022-09-13 19:10] VITALS: BP 129/89; PULSE 70; RESP 16; TEMP 36.9; O2SAT 100
== END 2022-09-13 19:15 | disposition home or self-care (01) | DRG 99 ==
LOC: ED 17:11 → PCU 18:39
PROVIDERS: Emergency Provider Emergency Medicine; PCP Family Medicine
DX: G03.0 Nonpyogenic meningitis (principal); R29.2 Abnormal reflex; E03.9 Hypothyroidism, unspecified; M54.50 Low back pain, unspecified; Z82.3 Family history of stroke; B00.9 Herpesviral infection, unspecified
CPT/HCPCS: 36415; 70496; 72100; 80048; 80053; 82945; 84157; 85025; 87070; 87205; 87498; 87529; 87798; 89050; 89051; 99284; J7030; Q9967; A4216; J1570

== ENCOUNTER → 2022-09-18 | Outpatient (CLI) | payer OTHER, SELFPAY ==
[2022-09-18 16:56] LABS: Hematocrit 38.7 % (37-47); Hemoglobin 12.1 g/dL (12.0-15.0); Mean Corp Hgb Conc 31.3 g/dL (32-36); Mean Corpuscular Hgb 28.9 pg (27.0-32.0); Mean Corpuscular Volume 92.6 fL (81-99); Mean Platelet Vol. 10.4 fl (6.2-12.0); Platelet Count 270 K/mm3 (150-450); RBC Distribution Width CV 12.9 % (11.6-14.6); RBC Distribution Width SD 43.8 fl (35.1-43.9); Red Blood Count 4.18 M/mm3 (4.2-5.4); White Blood Count 3.7 K/mm3 (4.4-11.0)
[2022-09-18 17:58] LABS: Anion Gap 7 (5-15); BUN 14 mg/dL (7-18); BUN/Creat Ratio 15.5 RATIO (10-20); Calcium,Total 8.8 mg/dL (8.5-10.1); Chloride 108 mmol/L (98-107); EST Glomerular Filtration Rate 70 mL/min (>60); Est Glom Filt Rate - Afr Amer 84 mL/min (>60); Glucose 95 mg/dL (74-106); Potassium 4.2 mmol/L (3.5-5.1); Sodium Level 141 mmol/L (136-145)
== END | disposition home or self-care (01) ==
LOC: LAB 16:25
PROVIDERS: PCP Family Medicine; Referring Provider Internal Medicine Infectious Disease; Visit Provider Internal Medicine Infectious Disease
DX: G03.0 Nonpyogenic meningitis (principal)
CPT/HCPCS: 36415; 80048; 85027

== ENCOUNTER → 2022-12-31 | Outpatient (CLI) | payer OTHER, SELFPAY ==
--- NOTE | 2022-12-31 16:16 | BI_ITS ---
MAMMOGRAPHY - BILATERAL SCREENING REASON FOR EXAM: Female, 52 years old. Routine annual screening examination. PERTINENT HISTORY: Non-contributory. TECHNIQUE: Digital bilateral breast tito (3D mammographic acquisition) in the CC and MLO projections. 2-D mediolateral oblique (MLO) and craniocaudad (CC) views of both breasts were obtained. CAD: Full Field Digital Mammography with Computer Added Detection was performed. COMPARISON: Comparison is made with prior study dated December 18, 2021 and April 05, 2020. FINDINGS: Breast Composition: The breasts are heterogeneously dense, which may obscure small masses. There are no dominant masses or suspicious calcifications. No other significant abnormalities are identified. There has been no significant change since the prior study. BI/SCRN MAMM (CAD)W/TITO BILAT IMPRESSION: Stable bilateral screening mammogram. Yearly follow-up mammogram recommended. (A) ASSESSMENT CATEGORY: BIRADS Category 1: Negative. A letter regarding these results will be sent to the patient by the facility within 30 days. Approximately 10% of breast cancers are not detected by mammography. A normal mammogram should not delay biopsy of a clinically suspicious abnormality. [id number] Electronically Signed: Tacho Loja MD at 8:56 EDT ,
== END | disposition home or self-care (01) ==
LOC: OPBI 16:14
PROVIDERS: PCP Family Medicine; Referring Provider Family Medicine; Visit Provider Family Medicine
DX: Z12.31 Encounter for screening mammogram for malignant neoplasm of breast (principal)
CPT/HCPCS: 77063; 77067

== ENCOUNTER → 2023-10-03 | Outpatient (CLI) | payer OTHER, SELFPAY ==
--- NOTE | 2023-10-03 07:34 | CT_ITS ---
INDICATION: NO SMELL EXAMINATION: CT SINUSES - CT Sinuses W/O Contrast Injection TECHNIQUE: Helically acquired images were obtained of the paranasal sinuses. The protocol utilizes one or more of the following dose reduction techniques: automated exposure control, adjustment of mA and/or kV according to patient size,and/or use of iterative reconstruction technique. IV Contrast dosage and agent: None RADIATION DOSAGE (If Supplied By Facility): CTDIvol = ( 33.06 ) mGy, DLP = ( 846.25 ) mGycm COMPARISON: No relevant prior comparison study available FINDINGS: FRONTAL SINUSES AND RECESSES: Mucosal thickening of the left frontal sinus. The left frontoethmoidal sinus appears to be occluded. ETHMOID AIR CELLS: Moderate to severe mucosal thickening of the ethmoid sinuses. MAXILLARY SINUSES: Moderate mucosal thickening of the maxillary sinuses bilaterally. OSTIOMEATAL COMPLEXES: Occluded bilaterally. SPHENOID SINUSES: Mild mucosal thickening of the left sphenoid sinus. SPHENOETHMOIDAL RECESSES: Occluded bilaterally.. ANCILLARY FINDINGS: NASAL TURBINATES: Mild hypertrophy of the nasal turbinates. NASAL SEPTUM: Mild deviation of the nasal septum to the left side. Small septal spur. ORBITS: Unremarkable. VISUALIZED DENTITION: No periodontal osseous erosion. ANTERIOR CRANIAL FOSSA: Unremarkable. CT/Sinus/Facial Bone IMPRESSION: Chronic pansinusitis as described above. Electronically Signed: Iraj Martinez MD at 9:50 EDT ,
== END | disposition home or self-care (01) ==
PROVIDERS: PCP Family Medicine; Referring Provider Otolaryngology; Visit Provider Otolaryngology
DX: J32.8 Other chronic sinusitis (principal); J33.0 Polyp of nasal cavity; R43.0 Anosmia
CPT/HCPCS: 70486

== ENCOUNTER → 2024-02-13 | Outpatient (CLI) | payer OTHER, SELFPAY ==
--- NOTE | 2024-02-13 09:08 | BI_ITS ---
MAMMOGRAPHY - BILATERAL SCREENING REASON FOR EXAM: Female, 53 years old. Routine annual screening examination. PERTINENT HISTORY: Non-contributory. TECHNIQUE: Digital bilateral breast tito (3D mammographic acquisition) in the CC and MLO projections. 2-D mediolateral oblique (MLO) and craniocaudad (CC) views of both breasts were obtained. CAD: Full Field Digital Mammography with Computer Added Detection was performed. COMPARISON: Comparison is made with prior study December 31, 2022 and November 30, 2021. FINDINGS: Breast Composition: The breasts are heterogeneously dense, which may obscure small masses. There are no dominant masses or suspicious calcifications. No other significant abnormalities are identified. There has been no significant change since the prior study. BI/SCRN MAMM (CAD)W/TITO BILAT IMPRESSION: Stable bilateral screening mammogram. Yearly follow-up mammogram recommended. (A) ASSESSMENT CATEGORY: BIRADS Category 1: Negative. A letter regarding these results will be sent to the patient by the facility within 30 days. Approximately 10% of breast cancers are not detected by mammography. A normal mammogram should not delay biopsy of a clinically suspicious abnormality. [id number] Electronically Signed: Tacho Loja MD at 10:14 EST ,
== END | disposition home or self-care (01) ==
LOC: OPBI 09:07
PROVIDERS: PCP Family Medicine; Referring Provider Family Medicine; Visit Provider Family Medicine
DX: Z12.31 Encounter for screening mammogram for malignant neoplasm of breast (principal)
CPT/HCPCS: 77063; 77067

== ENCOUNTER 2024-04-19 08:13 | Day surgery (SDC) | payer OTHER, SELFPAY ==
[2024-04-16 13:22] LABS: Hematocrit 35.7 % (37-47); Hemoglobin 11.1 g/dL (12.0-15.0); Mean Corp Hgb Conc 31.1 g/dL (32-36); Mean Corpuscular Hgb 26.5 pg (27.0-32.0); Mean Corpuscular Volume 85.2 fL (81-99); Mean Platelet Vol. 11.2 fl (6.2-12.0); Platelet Count 250 K/mm3 (150-450); RBC Distribution Width CV 14.4 % (11.6-14.6); RBC Distribution Width SD 44.5 fl (35.1-43.9); Red Blood Count 4.19 M/mm3 (4.2-5.4)
[2024-04-16 13:33] LABS: International Normalized Ratio 0.9; Prothrombin Time (Protime)PT. 12.3 SECONDS (11.7-14.9)
[2024-04-16 13:34] LABS: Partial Thromboplast Time 25.7 Seconds (24.1-36.2)
[2024-04-16 13:59] LABS: Anion Gap 6 (5-15); BUN 14 mg/dL (7-18); BUN/Creat Ratio 16.7 RATIO (10-20); Calcium,Total 9.3 mg/dL (8.5-10.1); Chloride 109 mmol/L (98-107); Creatinine, Serum 0.84 mg/dL (0.55-1.02); EST Glomerular Filtration Rate 76 mL/min (>60); Est Glom Filt Rate - Afr Amer 92 mL/min (>60); Glucose 77 mg/dL (74-106); Potassium 3.7 mmol/L (3.5-5.1); Sodium Level 140 mmol/L (136-145)
[2024-04-19] VITALS (9 sets, daily range): BP systolic 130–153; BP diastolic 81–89; PULSE 62–82; RESP 14–19; TEMP 3–37.4; O2SAT 97–100; BMI 33.6
--- NOTE | 2024-04-19 08:47 | EKG12_ITS ---
Test Reason : PREOP Blood Pressure : */* mmHG Vent. Rate : 65 BPM Atrial Rate : 65 BPM P-R Int : 162 ms QRS Dur : 80 ms QT Int : 402 ms P-R-T Axes : 4 4 -3 degrees QTcB Int : 418 ms Normal sinus rhythm Nonspecific ST abnormality Abnormal ECG When compared with ECG of 23-Aug-2017 14:20, Nonspecific T wave abnormality no longer evident in Anterior leads Confirmed by RICHIE MICHELE, LYRIC ([id number]), purchasing expeditor MELISSA WALL ([id number]) on 04/27/2024 6:25:15 AM Referred By: Low Menendez Confirmed By: LYRIC QUIROZ MD
--- NOTE | 2024-04-19 09:14 | PRE.ANES_ITS ---
ASA Classification* ASA Classification ASA Classification: 2 Assessment & Plan Anesthesia* Anesthesia Assessment Anesthesia Assessment: Discussed sedation and/or anesthesia options, risks, benefits, and alternatives with patient/parents/legal guardian/POA. Questions invited. The patient/parents/legal guardian/POA seems to understand and agrees to proceed with anesthesia plan. Reviewed the physical assessment, medical history, allergy history and patient home medications list prior to surgery/procedure/anesthetic and documented any changes. Performed airway and anesthesia risk assessments. Anesthesia Type Anesthesia Type: General History Source History Obtained from:: Patient and Chart Anesthesia Focused Assessment* Temperature: 97.2 F Pulse Rate: 67 Blood Pressure: 130/87 Respiratory Rate: 16 Pulse Ox: 100 Oxygen Delivery Method: Room Air Airway Assessment Mouth opens: >3 cm Mallampati Score: II Teeth Condition: Intact Neck Range of motion (ROM): Full ROM Focused Labs Anesthesia Preop lab: CBC WBC 4.0 K/mm3 (4.4-11.0) L 04/16/24 12:19 RBC 4.19 M/mm3 (4.2-5.4) L 04/16/24 12:19 Hgb 11.1 g/dL (12.0-15.0) L 04/16/24 12:19 Hct 35.7 % (37-47) L 04/16/24 12:19 Plt Count 250 K/mm3 (150-450) 04/16/24 12:19 CHEMISTRY Potassium 3.7 mmol/L (3.5-5.1) 04/16/24 12:19 Sodium 140 mmol/L (136-145) 04/16/24 12:19 BUN 14 mg/dL (7-18) 04/16/24 12:19 Creatinine 0.84 mg/dL (0.55-1.02) 04/16/24 12:19 Glucose 77 mg/dL (74-106) 04/16/24 12:19 TSH 1.000 uIU/mL (0.358-3.740) 04/16/24 12:19 COAG PT 12.3 SECONDS (11.7-14.9) 04/16/24 12:19 Pre-Assessment Diagnosis/Proposed Procedure Planned Operative Procedure(s): (N/A) Functional Endoscopoic Sinus Surgery with Navigation Anesthesia History 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 When Was Last Pacemaker Check QUESTION #4 FULL TEXT: You/Your Family Experience fever (hyperthermia) with Anesthesia Last Oral Intake Last Oral intake: Last Oral Intake NPO since 20:30 04/19/24 08:55 Meds taken in AM with sips of Yes 04/19/24 08:55 water? Meds patient instructed to see chart 04/19/24 08:55 take am of surgery PONV PONV - parts sales advisor: PONV - parts sales advisor Female Yes 04/16/24 11:30 HX of Motion Sickness No 04/16/24 11:30 HX of N/V After Surgery No 04/16/24 11:30 Non-Smoker Yes 04/16/24 11:30 Duration of Surgery greater Yes 04/16/24 11:30 than 60 minutes Number of Risk Factors 3 04/16/24 11:30 PONV Score Moderate Risk 04/16/24 11:30 Height & Weight Height & Weight: Anesthesia: Height & Weight Height 5 ft 9 in 04/19/24 08:55 Weight: 103.3 kg 04/19/24 08:55 Body Mass Index (BMI) 33.6 04/19/24 08:55 Respiratory Assessment Respiratory Assessment - parts sales advisor: Respiratory Tract Infection Hx - parts sales advisor Hx Respiratory Tract Infection No 04/16/24 11:30 Any additional information?: No STOP Sleep Apnea STOP Sleep Apnea - parts sales advisor: STOP Sleep Apnea - parts sales advisor Hx Hypertension No 04/16/24 11:30 Hx Sleep Apnea No 04/16/24 11:30 CPAP BIPAP Do you snore loudly (louder No 04/16/24 11:30 than talking or can be heard Do you often feel tired/ No 04/16/24 11:30 fatigued/ sleepy during daytime? Has anyone observed you stop No 04/16/24 11:30 breathing during sleep? STOP Results Negative 04/16/24 11:30 QUESTION #5 FULL TEXT : Do you snore loudly (louder than talking or can be heard through closed doors)? Any additional information?: Yes Hx Hypertension: No Hx Sleep Apnea: No CPAP: No BIPAP: No Do you snore loudly (louder than talking or can be heard through c losed doors)?: Yes Do you often feel tired/ fatigued/ sleepy during daytime?: No Has anyone observed you stop breathing during sleep?: No STOP Results: Negative Tobacco Use History Tobacco Use History - parts sales advisor: Tobacco Use History - parts sales advisor Tobacco Use Smoking Status Never smoker 04/16/24 11:30 Hx Tobacco Use No 04/16/24 11:30 Years Smoking Packs Smoked per Day Smoking Cessation Date was within the last 15 years Hx Smoking Cessation Date Hx Smoking Cessation Counseling Hematologic Medial History Hematologic Hx - parts sales advisor: 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 Specify any problems Hx of Preganancy in last 3 No 04/16/24 11:30 Months Nurse Filling Out Transfusion MGRIFFITH 04/16/24 11:30 & Questions: Date: 04/16/24 04/16/24 11:30 Time: 11:32 04/16/24 11:30 Patient unable to answer at this time (ie. confused, unrespo /Reproduction History /Reproductive History - parts sales advisor: /Reproductive Hx- parts sales advisor Hx Now No 04/16/24 11:30 Gestational Age (in weeks): EDC: Hx Hx Para Hx Section SAB No 04/16/24 11:30 Active Medications Active Medications: Current Medications Generic Name Dose Route Start Last Admin Trade Name Freq PRN Reason Stop Dose Admin Sodium Chloride 1,000 mls @ 15 mls/hr 04/19/24 08:40 IV 04/24/24 21:59 .Q48H ADIA Protocol Oxymetazoline HCl 0 spray 04/19/24 09:45 Oxymetazoline 0.05% 1 Mosinee Mosinee.Btl NASAL 04/19/24 09:46 PREOP [facility] Medical History Wears contact lenses Alcohol use History of steroid therapy Anemia Heartburn Non-smoker Hypothyroid Home Medications ?Medication ?Instructions ?Recorded ?Last Taken ?Type levothyroxine 125 mcg tablet 125 mcg PO DAILY THYROID 09/11/22 04/19/24 History doxycycline hyclate 50 mg capsule 100 mg PO BID 04/16/24 04/19/24 History methylprednisolone 4 mg tablet 4 mg PO DAILY 04/16/24 04/18/24 History Allergy/AdvReac Type Severity Reaction Status Date / Time No Known Allergies Allergy Verified 04/19/24 08:51 Family History Other CVA (cerebral vascular accident) Surgical History History of tubal ligation Social History Smoking Status: Never smoker alcohol intake: current alcohol intake frequency: holidays/special occasions only Review of Systems (Anesthesia) ROS Narrative System reviewed and no additional complaints, except as documented.
--- NOTE | 2024-04-19 09:45 | NASAL_PTH ---
PATIENT: MICK HAHN [place] [facility] [id number] AGE/SX: 53/F ROOM: RE04/19/[address]: Dr. Low Menendez MD : 1970 BED: DIS: 04/19/2024 SPEC #: [id number] RECD: 04/19/24 12:55 STATUS: CHARLI REHalima #: [id number] MARISEL: 04/19/24 09:[address]: Low Menendez DEPT: SURGICAL PATHOLOGY RECD BY: Yuly Block ENTERED: 04/19/24 13:36 SP TYPE: NASAL SPEC OTHR DR: Dr. Xavi Beal MD Tissues: A - Ethmoid sinus, NOS B - Ethmoid sinus, NOS Procedures: Decalcification bone/plaque Surgery Specimen Level IV HEADER OPERATION: Functional endoscopic sinus surgery with navigation, total PRE-OP DIAGNOSIS: Chronic sinusitis, polyp of nasal cavity TISSUE SUBMITTED: A- Left nasal cavity, B- Right nasal contents MICROSCOPIC DIAGNOSIS A. Left nasal cavity contents: Fragments of respiratory mucosa with chronic inflammation and bone. See comment. B. Right nasal contents: Fragments of respiratory mucosa with chronic inflammation and bone. 04/22/2024 COMMENT A. A fragment of lymphoid tissue with reactive changes are also noted, most likely to represent adenoid tissue. MICROSCOPIC DESCRIPTION Slides are reviewed. GROSS DESCRIPTION A. Received in fixative is one container labeled with the patient's name and designated Left nasal contents. The specimen consists of multiple irregular fragments of hemorrhagic clotty tissue mixed with fragments of bone that in aggregate measure 5 x 3 x 0.2 cm. The specimen is totally submitted in two cassettes after decalcification. B. Received in fixative is one container labeled with the patient's name and designated Right nasal contents. The specimen consists of multiple irregular fragments of pink mucoid tissue mixed with fragments of bone that in aggregate measure 3 x 2.5 x 0.1 cm. The specimen is totally submitted in one cassette after decalcification. 04/19/2024 TC:3 CPT:82802n2,96947g3
[2024-04-19] MEDS: Lidocaine 1% /Epi 1:100 (20ml) 20 ML Vial (10:33)
[2024-04-19] MEDS: Oxymetazoline 0.05% 1 SPRAY SPRAY.BTL 15 SPRAY (10:52)
--- NOTE | 2024-04-19 11:12 | DS.PCM_ITS ---
Providers Primary Care Physician: Dr. Xavi Beal MD Reason For Visit: Functional Endoscopoic Sinus Surgery with Navigati Medications at Discharge Home Medications levothyroxine 125 mcg tablet 125 mcg PO DAILY THYROID 09/11/22 doxycycline hyclate 50 mg capsule 100 mg PO BID 04/16/24 methylprednisolone 4 mg tablet 4 mg PO DAILY 04/16/24 Weight / BMI Weight Weight: 103.3 kg Body Mass Index (BMI) 33.6 ABG / Lab / Microbiology Data 04/16/24 12:19 04/16/24 12:19 D/C Instructions Discharge Diet: No restrictions Discharge Activity: Return to Normal Activity Additional Activity Instructions: No nose blowing. Start saline 4x/day tomorrow DC O2, CPAP, BIPAP Needs Home O2 Discharge instructions: No DC home with Oxygen: No Please Follow Up With: Low Menendez MD When: next week Meaningful Use Info Meaningful Use Meaningful Use Diagnoses (Choose all that apply): None applicable Ischemic Stroke Statin Dosing Therapy Reference: STATIN DOSE THERAPY REFERENCE: * Patients > 75 years receive moderate or high dose statin therapy. * Patients 75 years or YOUNGER should receive HIGH intensity statin dose unless contraindicated. You will be required to document reason for non-treatment if statin daily dose does not meet guidelines. HIGH DOSE STATIN THERAPY DAILY Atorvastatin > than or = to 40 mg Rosuvastatin > than or = to 20 mg Amlodipine + Atorvastatin > than or = to 2.5/40 mg Ezetimibe + Simvastatin 10/80 mg Simvastatin 80mg Discharge Plan Admission Attending Provider: Low Menendez Primary Care Provider: Xavi Beal Instructions Print Language: Citizen Of [place] Discharge Orders/Prescriptions Prescriptions: No Action levothyroxine 125 mcg tablet 125 mcg PO DAILY Patient Comments: TAKE 1 TABLET BY MOUTH ONCE DAILY methylprednisolone 4 mg tablet 4 mg PO DAILY doxycycline hyclate 50 mg capsule 100 mg PO BID Patient Comments: TO START AFTER SURGERY 04/19/2024 Other Ambulatory Orders: 12 Lead EKG (Routine) Timeframe: 20240419 Location: None Selected Ordered By: Dr. Robi Strange Referrals / Follow Up: Xavi Beal MD [Primary Care Provider] - Disposition Disposition (needs filled in before D/C Order can be placed): Home, Self Care
--- NOTE | 2024-04-19 11:14 | PCM.OPRPT ---
Operative Report (Standard) Operative Information Date of Procedure: 04/19/24 Pre-Operative Diagnosis: chronic sinusitis with polyposis Post-Operative Diagnosis: same Surgery/Procedure Performed: Bilateral total ethmoidectomy bilateral sphenoidotomy bilateral maxillary antrostomy use of navigation conference manager: No Type of Anesthesia: General RN Documented Start/Stop Times: Operation Date: 04/19/24 09:45 Case Time Into Pre-Op 04/19/24 08:33 Out of Pre-Op 04/19/24 10:07 Anesthesia Start 04/19/24 10:10 Into Room 04/19/24 10:10 Procedure Start 04/19/24 10:32 Procedure Start Time: 10:32 Procedure Stop Time: 11:11 Select all DRAINS/GRAFTS/IMPLANTS that apply: None Estimated Blood Loss: minimal Specimen collected: Yes Description of specimen(s) removed: sinus contents Description of surgery: The patient was taken to the operating room on 04/19/2024. The patient was placed in the supine position on the operating table. The patient was given sufficient general endotracheal anesthesia. The head of bed was elevated 30 degrees. The navigation system was placed and verified per protocol and found to be accurate. 0 and 30 degrees rigid nasal endoscopes were used throughout the entire case. The middle turbinate uncinate process and polyps were injected with 1% lidocaine with epinephrine bilaterally. The right middle turbinate was medialized with a Alexander elevator. Polyp was removed from the middle meatus using a sinus shaver. A ball-tipped sinus seeker was placed into the patient's maxillary sinus. The antrostomy was created with a backbiter. The uncinate process was taken down using a microdebrider. Next, the ethmoid bulla was opened with a small curette. Anterior and posterior ethmoidectomy were then carried out using curette, sinus shaver and 45 degree Blakesley Lynnette forceps. Ethmoid cells were verified for relation to the skull base and orbit prior to being entered with the navigation system. The front face of the sphenoid was opened with a suction. The microdebrider was then used to widen the opening. I then placed Afrin pledgets into the sinonasal cavity. Next attention was turned to the left side. The middle turbinate was medialized with a Alexander elevator. A ball-tipped sinus seeker was inserted the patient's maxillary sinus. A backbiter was used to create the antrostomy. It was widened posteriorly with Warren-Cut forceps. The uncinate process was taken down using a sinus shaver. The ethmoid bulla was opened with a small curette. Anterior posterior ethmoidectomy were then carried out using a sinus shaver curette and Blakesley Lynnette forceps. Ethmoid cells were verified for relation to the skull base and orbit prior to being entered with the navigation system. The sphenoid was then opened on the left side using a sinus shaver and confirmed with navigation. Hemostasis was then achieved using Afrin pledgets. Some sparing suction cautery was used on the right middle turbinate and left sphenoethmoid area. The pledgets were then removed bilaterally and Anne powder was applied bilaterally for absolute hemostasis. The procedure was then terminated. The patient was then awoken and brought to the recovery room in stable condition blood loss less than 20 cc, replacement none. Sponge, needle, instrument count were correct at the end of the procedure. Surgical Findings: polyp right uncinate Complications Complications: No
--- NOTE | 2024-04-19 21:19 | PCM.POST.ANE ---
Anesthesia: Postop Eval I Current Vital Signs Temperature: 37.4 F Pulse Rate: 82 Blood Pressure: 132/84 Respiratory Rate: 19 Pulse Ox: 97 Oxygen Delivery Method: Room Air Assessment Airway patent: Yes Spontaneous unlabored respirations: Yes Mental status: Awake and Calm nausea: No Vomiting: No Anesthesia Complication: No Fluid Hydration Crystalloid volume administer (ml): 1,000 Total IV fluid infused: 1,000 Progress Note Anesthesia document: Postop Eval 1 completed: Yes
--- NOTE | 2024-04-19 21:21 | PCM.POSTANE2 ---
Anesthesia Postop Eval I Sum Postop Eval Completion status Anesthesia document: Postop Eval 1 completed: Yes Anesthesia Postop Eval I Summary Anesthesia Postop Eval I Summary: Anesthesia Postop Eval I: Assessment Summary Airway patent Yes 04/19/24 21:20 Spontaneous unlabored Yes 04/19/24 21:20 respirations Mental status Awake,Calm 04/19/24 21:20 nausea No 04/19/24 21:20 Vomiting No 04/19/24 21:20 Anesthesia Postop Eval I: Fluid Summary Crystalloid volume administer 1,000 04/19/24 21:20 (ml) Colloids volume administered ( ml) Blood Product volume administered (ml) Total IV fluid infused 1,000 04/19/24 21:20 Anesthesia Postop Eval I: Summary Notes Anesthesia Complication No 04/19/24 21:20 Anesthesia Complication Comment: Post-operative progress note Anesthesia: Postop Eval II Evaluation Mental status: Awake and Calm Pain Level: 3 nausea: No Vomiting: No Complications Anesthesia Complication: No
== END 2024-04-19 12:43 | disposition home or self-care (01) ==
LOC: SDC 08:18 → AC 08:19
PROVIDERS: Anesthesiology; PCP Family Medicine; Referring Provider Otolaryngology; Visit Provider Otolaryngology
PROC: (CPT 31256; principal; 2024-04-19 09:15)
DX: J32.8 Other chronic sinusitis (principal); E07.9 Disorder of thyroid, unspecified; J33.0 Polyp of nasal cavity
CPT/HCPCS: 31256; 31255; 30110; 00160; 36415; 80048; 84443; 85027; 85610; 85730; 88305; 88311; 93005; J2405

== ENCOUNTER → 2025-02-18 | Outpatient (CLI) | payer OTHER, SELFPAY ==
--- NOTE | 2025-02-18 09:02 | BI_ITS ---
EXAM: SCRN MAMM (CAD)W/TITO BILAT DATE: 02/18/2025 CLINICAL HISTORY: F, Age 54 y/o , SCREENING TECHNIQUE: Procedure Code: [id number] Modality: MG Procedure: SCRN MAMM (CAD)W/TITO BILAT COMPARISON: Prior exam(s) were compared FINDINGS: TISSUE DENSITY: The breasts are heterogeneously dense, which may obscure small masses. Bilateral Breast Mammographic Findings: No significant masses, calcifications or other abnormalities are identified. BI/SCRN MAMM (CAD)W/TITO BILAT IMPRESSION: No mammographic evidence of malignancy in either breast. OVERALL FINAL ASSESSMENT BI-RADS 1: NEGATIVE. RECOMMENDATION: Routine annual follow-up in 1 Year Additional Recommendation none A letter with findings and recommendations will be mailed to the patient. Reading Location: [id number]
== END | disposition home or self-care (01) ==
LOC: OPBI 08:59
PROVIDERS: PCP Family Medicine; Referring Provider Family Medicine; Visit Provider Family Medicine
DX: Z12.31 Encounter for screening mammogram for malignant neoplasm of breast (principal)
CPT/HCPCS: 77063; 77067